=== PATIENT | male | born 1950 | race Hispanic/Latino ===

== ENCOUNTER → 2019-04-08 | Day surgery (SDC) | payer MEDICARE ==
[2019-04-06 13:06] LABS: BASOPHILS % 0.6 % (0.0-1.0); EOSINOPHILS # (AUTO) 0.1 (0.0-0.4); EOSINOPHILS % 1.9 % (0.0-6.0); HEMATOCRIT 41.6 % (38.2-49.6); HEMOGLOBIN 13.8 g/dL (14.0-18.0); LYMPHOCYTES # (AUTO) 2.5 (1.0-3.2); LYMPHOCYTES % 39.2 % (18.0-39.1); MEAN CORPUSCULAR HEMOGLOBIN 27.3 pg (28-32); MEAN CORPUSCULAR HGB CONC 33.2 g/dL (31-35); MEAN CORPUSCULAR VOLUME 82.4 fL (81-99); MONOCYTES # (AUTO) 0.8 (0.2-0.8); MONOCYTES % 11.9 % (4.4-11.3); NEUTROPHILS # (AUTO) 2.9 (2.1-6.9); NEUTROPHILS % 46.2 % (38.7-80.0); PLATELET COUNT 244 x10e3/uL (140-360); RED BLOOD COUNT 5.05 x10e6/uL (4.3-5.7)
[~2019-04-08] MED LIST: ATORVASTATIN CA10 MG PO; BENAZEPRIL HCL10 MG PO; ELIQUIS5 M1 PO; LASIX40 MG PO; LIDOCAINE HCL 2% LOCAL INJ 5 ML SDV VIAL INJ ONE; METFORMIN HCL500 MG PO; METOPROLOL SUCC50 MG PO; MIDAZOLAM HCL 2 MG/2 ML VIAL ONE; PROPOFOL IV EMULSION 10 MG/ML 50 ML VIAL ONE
--- OUTSIDE RECORDS SUMMARY | 2019-04-08 09:54 | XMS REPORT ---
Author Author [facility] Address Unknown Phone Unavailable Care Team Providers Care [employer] Canning Leader Name Role Phone ROHITKEY Unavailable Unavailable Nicolas HARRIS Unavailable Unavailable BRAN PHAM Unavailable Unavailable Problems This patient has no known problems. Allergies, Adverse Reactions, Alerts This patient has no known allergies or adverse reactions. Medications This patient has no known medications. Results Test Description Test Time Test Comments Text Results Atomic Results Result Comments BLOOD CULTURE 2018-09-13 20:01:00 CULTURE (BEAKER) (test pgsq=1442) No growth in 5 days BLOOD [id number] 20:01:00* Test Item Value Reference Range Comments CULTURE (BEAKER) (test bubj=3294) No growth in 5 days WOUND CULTURE + GRAM [id number] 12:34:00* Test Item Value Reference Range Comments CULTURE (BEAKER) (test ddix=4455) 3+ Diphtheroid CULTURE (BEAKER) (test rgmw=9405) ENTEROCOCCUS SPECIES <1+ Enterococcus species Ampicillin (test code=26) Tetracycline (test code=2) Vancomycin (test code=13) GRAM STAIN RESULT (BEAKER) (test lrmp=6901) 1+ WBCs GRAM STAIN RESULT (BEAKER) (test xcib=903152) 1+ gram positive rods GRAM STAIN RESULT (BEAKER) (test giiv=348780) <1+ gram positive coccobacilli POCT-GLUCOSE [id number] 11:53:00* Test Item Value Reference Range Comments POC-GLUCOSE METER (BEAKER) (test nlbd=3318) 106 mg/dL 70-[address] [facility] [address] [facility] [address] POCT-GLUCOSE [id number] 07:36:00* Test Item Value Reference Range Comments POC-GLUCOSE METER (BEAKER) (test obtv=6716) 125 mg/dL 70-[address] [facility] [address] [facility] [address] POCT-GLUCOSE [id number] 22:03:00* Test Item Value Reference Range Comments POC-GLUCOSE METER (BEAKER) (test zayc=8888) 126 mg/dL 70-110 TESTED AT [place] [id number] [facility] [address] POCT-GLUCOSE [id number] 17:01:00* Test Item Value Reference Range Comments POC-GLUCOSE METER (BEAKER) (test fyez=2611) 114 mg/dL 70-110 TESTED AT [address] [address] POCT-GLUCOSE [id number] 12:43:00* Test Item Value Reference Range Comments POC-GLUCOSE METER (BEAKER) (test sqkg=0118) 117 mg/dL 70-110 TESTED AT [address] [address] POCT-GLUCOSE [id number] 09:55:00* Test Item Value Reference Range Comments POC-GLUCOSE METER (BEAKER) (test dcod=1019) 126 mg/dL 70-110 TESTED AT [address] [address] [id number] 03:23:00* Test Item Value Reference Range Comments MAGNESIUM (BEAKER) (test ynxk=158) 2.3 mg/dL 1.6-2.6 Specimen slightly hemolyzed BASIC METABOLIC [id number] 03:23:00* Test Item Value Reference Range Comments SODIUM (BEAKER) (test xlal=998) 137 meq/L 136-145 POTASSIUM (BEAKER) (test vngb=815) 4.2 meq/L 3.5-5.1 Specimen slightly hemolyzed CHLORIDE (BEAKER) (test dazi=113) 103 meq/L 98-107 CO2 (BEAKER) (test epio=167) 23 meq/L 22-29 BLOOD UREA NITROGEN (BEAKER) (test toil=473) 15 mg/dL 7-21 CREATININE (BEAKER) (test wgnq=554) 1.01 mg/dL 0.57-1.25 Specimen slightly hemolyzed GLUCOSE RANDOM (BEAKER) (test djco=271) 114 mg/dL 70-105 CALCIUM (BEAKER) (test ehba=099) 9.4 mg/dL 8.4-10.2 EGFR (BEAKER) (test uset=7137) 73 mL/min/1.73 sq m ESTIMATED GFR IS NOT ACCURATE CREATININE CLEARANCE IN PREDICTING GLOMERULAR FILTRATION RATE. ESTIMATED GFR IS NOT APPLICABLE FOR DIALYSIS PATIENTS. POCT-GLUCOSE [id number] 21:50:00* Test Item Value Reference Range Comments POC-GLUCOSE METER (BEAKER) (test xzcx=2419) 171 mg/dL 70-110 TESTED AT [address] [address] POCT-GLUCOSE [id number] 19:06:00* Test Item Value Reference Range Comments POC-GLUCOSE METER (BEAKER) (test wgcd=0456) 109 mg/dL 70-110 TESTED AT [address] [address] POCT-GLUCOSE [id number] 13:11:00* Test Item Value Reference Range Comments POC-GLUCOSE METER (BEAKER) (test uvdu=7667) 122 mg/dL 70-110 TESTED AT [address] [address] POCT-GLUCOSE [id number] 09:08:00* Test Item Value Reference Range Comments POC-GLUCOSE METER (BEAKER) (test dgbs=9999) 126 mg/dL 70-110 TESTED AT [address] [address] [id number] 06:51:00* Test Item Value Reference Range Comments MAGNESIUM (BEAKER) (test igew=125) 2.0 mg/dL 1.6-2.6 BASIC METABOLIC [id number] 06:51:00* Test Item Value Reference Range Comments SODIUM (BEAKER) (test ayff=390) 140 meq/L 136-145 POTASSIUM (BEAKER) (test juyg=947) 4.2 meq/L 3.5-5.1 CHLORIDE (BEAKER) (test wrxu=622) 105 meq/L 98-107 CO2 (BEAKER) (test sjqm=558) 26 meq/L 22-29 BLOOD UREA NITROGEN (BEAKER) (test yfko=033) 14 mg/dL 7-21 CREATININE (BEAKER) (test xlkb=438) 1.07 mg/dL 0.57-1.25 GLUCOSE RANDOM (BEAKER) (test buzw=498) 128 mg/dL 70-105 CALCIUM (BEAKER) (test kmhy=612) 9.4 mg/dL 8.4-10.2 EGFR (BEAKER) (test iexp=8565) 69 mL/min/1.73 sq m ESTIMATED GFR IS NOT ACCURATE CREATININE CLEARANCE IN PREDICTING GLOMERULAR FILTRATION RATE. ESTIMATED GFR IS NOT APPLICABLE FOR DIALYSIS PATIENTS. POCT-GLUCOSE [id number] 22:35:00* Test Item Value Reference Range Comments POC-GLUCOSE METER (BEAKER) (test bile=1542) 114 mg/dL 70-110 TESTED AT [address] [address] POCT-GLUCOSE [id number] 17:48:00* Test Item Value Reference Range Comments POC-GLUCOSE METER (BEAKER) (test zapi=3414) 156 mg/dL 70-110 TESTED AT [address] [address] POCT-GLUCOSE [id number] 11:46:00* Test Item Value Reference Range Comments POC-GLUCOSE METER (BEAKER) (test olzl=8499) 167 mg/dL 70-110 TESTED AT [address] [address] POCT-GLUCOSE [id number] 09:22:00* Test Item Value Reference Range Comments POC-GLUCOSE METER (BEAKER) (test qrne=2300) 122 mg/dL 70-110 TESTED AT [address] [address] [id number] 07:54:00* Test Item Value Reference Range Comments MAGNESIUM (BEAKER) (test eeaf=741) 2.2 mg/dL 1.6-2.6 BASIC METABOLIC [id number] 07:54:00* Test Item Value Reference Range Comments SODIUM (BEAKER) (test cavi=500) 138 meq/L 136-145 POTASSIUM (BEAKER) (test jucf=904) 4.4 meq/L 3.5-5.1 CHLORIDE (BEAKER) (test byxe=787) 102 meq/L 98-107 CO2 (BEAKER) (test xwhw=617) 29 meq/L 22-29 BLOOD UREA NITROGEN (BEAKER) (test mglg=895) 12 mg/dL 7-21 CREATININE (BEAKER) (test wsmx=186) 0.97 mg/dL 0.57-1.25 GLUCOSE RANDOM (BEAKER) (test newf=754) 124 mg/dL 70-105 CALCIUM (BEAKER) (test hrts=314) 9.6 mg/dL 8.4-10.2 EGFR (BEAKER) (test bxdm=8378) 77 mL/min/1.73 sq m ESTIMATED GFR IS NOT ACCURATE CREATININE CLEARANCE IN PREDICTING GLOMERULAR FILTRATION RATE. ESTIMATED GFR IS NOT APPLICABLE FOR DIALYSIS PATIENTS. CBC (HEMOGRAM ONLY)2018-09-09 06:38:00* Test Item Value Reference Range Comments WHITE BLOOD CELL COUNT (BEAKER) (test hpyg=562) 6.8 K/ L 3.5-10.5 RED BLOOD CELL COUNT (BEAKER) (test inyi=393) 4.47 M/ L 4.63-6.08 HEMOGLOBIN (BEAKER) (test ghak=112) 11.5 GM/DL 13.7-17.5 HEMATOCRIT (BEAKER) (test njxi=969) 37.1 % 40.1-51.0 MEAN CORPUSCULAR VOLUME (BEAKER) (test lowe=373) 83.0 fL 79.0-92.2 MEAN CORPUSCULAR HEMOGLOBIN (BEAKER) (test zjea=554) 25.7 pg 25.7-32.2 MEAN CORPUSCULAR HEMOGLOBIN CONC (BEAKER) (test bhxl=137) 31.0 GM/DL 32.3-36.5 RED CELL DISTRIBUTION WIDTH (BEAKER) (test futu=673) 15.1 % 11.6-14.4 PLATELET COUNT (BEAKER) (test gcrq=772) 268 K/CU MM 150-450 MEAN PLATELET VOLUME (BEAKER) (test dqmp=878) 10.4 fL 9.4-12.4 NUCLEATED RED BLOOD CELLS (BEAKER) (test msdl=532) 0 /100 WBC 0-0 POCT-GLUCOSE [id number] 23:41:00* Test Item Value Reference Range Comments POC-GLUCOSE METER (BEAKER) (test phpy=2384) 118 mg/dL 70-[address] [facility] [address] [facility] [address] POCT-GLUCOSE [id number] 17:38:00* Test Item Value Reference Range Comments POC-GLUCOSE METER (BEAKER) (test lfyn=0451) 146 mg/dL 70-[address] [facility] [address] [facility] [address] POCT-LACTIC ACID, [id number] 12:12:00* Test Item Value Reference Range Comments POC-LACTIC ACID, VENOUS (BEAKER) (test rgbr=2127) 1.8 mmol/L 0.9-1.[address] [facility] [address] [facility] [address] BASIC METABOLIC [id number] 12:05:00* Test Item Value Reference Range Comments SODIUM (BEAKER) (test yaxq=569) 142 meq/L 136-145 POTASSIUM (BEAKER) (test cmhj=650) 4.4 meq/L 3.5-5.1 CHLORIDE (BEAKER) (test tysm=182) 105 meq/L 98-107 CO2 (BEAKER) (test arfa=063) 27 meq/L 22-29 BLOOD UREA NITROGEN (BEAKER) (test gyfv=080) 14 mg/dL 7-21 CREATININE (BEAKER) (test ahmy=617) 0.95 mg/dL 0.57-1.25 GLUCOSE RANDOM (BEAKER) (test calf=076) 125 mg/dL 70-105 CALCIUM (BEAKER) (test sytc=155) 10.1 mg/dL 8.4-10.2 EGFR (BEAKER) (test jrvj=9586) 79 mL/min/1.73 sq m ESTIMATED GFR IS NOT ACCURATE CREATININE CLEARANCE IN PREDICTING GLOMERULAR FILTRATION RATE. ESTIMATED GFR IS NOT APPLICABLE FOR DIALYSIS PATIENTS. CBC W/PLT COUNT & AUTO [id number] 11:47:00* Test Item Value Reference Range Comments WHITE BLOOD CELL COUNT (BEAKER) (test uimh=989) 7.1 K/ L 3.5-10.5 RED BLOOD CELL COUNT (BEAKER) (test cnmk=337) 4.73 M/ L 4.63-6.08 HEMOGLOBIN (BEAKER) (test yhbd=041) 12.1 GM/DL 13.7-17.5 HEMATOCRIT (BEAKER) (test ndzz=282) 39.3 % 40.1-51.0 MEAN CORPUSCULAR VOLUME (BEAKER) (test xrlu=717) 83.1 fL 79.0-92.2 MEAN CORPUSCULAR HEMOGLOBIN (BEAKER) (test jnsr=078) 25.6 pg 25.7-32.2 MEAN CORPUSCULAR HEMOGLOBIN CONC (BEAKER) (test kcwt=521) 30.8 GM/DL 32.3-36.5 RED CELL DISTRIBUTION WIDTH (BEAKER) (test fjhr=758) 15.1 % 11.6-14.4 PLATELET COUNT (BEAKER) (test cwrk=975) 295 K/CU MM 150-450 MEAN PLATELET VOLUME (BEAKER) (test hjlg=052) 9.8 fL 9.4-12.4 NUCLEATED RED BLOOD CELLS (BEAKER) (test khjf=006) 0 /100 WBC 0-0 NEUTROPHILS RELATIVE PERCENT (BEAKER) (test ojqc=681) 54 % LYMPHOCYTES RELATIVE PERCENT (BEAKER) (test yjci=701) 32 % MONOCYTES RELATIVE PERCENT (BEAKER) (test acri=788) 11 % EOSINOPHILS RELATIVE PERCENT (BEAKER) (test rvwp=856) 3 % BASOPHILS RELATIVE PERCENT (BEAKER) (test jgop=995) 1 % NEUTROPHILS ABSOLUTE COUNT (BEAKER) (test lvly=546) 3.81 K/ L 1.78-5.38 LYMPHOCYTES ABSOLUTE COUNT (BEAKER) (test avhw=345) 2.23 K/ L 1.32-3.57 MONOCYTES ABSOLUTE COUNT (BEAKER) (test hfah=888) 0.78 K/ L 0.30-0.82 EOSINOPHILS ABSOLUTE COUNT (BEAKER) (test wpmg=746) 0.19 K/ L 0.04-0.54 BASOPHILS ABSOLUTE COUNT (BEAKER) (test dtfc=578) 0.05 K/ L 0.01-0.08 IMMATURE GRANULOCYTES-RELATIVE PERCENT (BEAKER) (test qkgl=1187) 0 % 0-1 BLOOD [id number] 13:00:00* Test Item Value Reference Range Comments CULTURE (BEAKER) (test eoiy=0566) No growth in 5 days BLOOD [id number] 13:00:00* Test Item Value Reference Range Comments CULTURE (BEAKER) (test avjf=0754) No growth in 5 days POCT-GLUCOSE [id number] 12:11:00* Test Item Value Reference Range Comments POC-GLUCOSE METER (BEAKER) (test wwwl=6006) 137 mg/dL 70-[address] [facility] [address] [facility] [address] POCT-GLUCOSE [id number] 08:48:00* Test Item Value Reference Range Comments POC-GLUCOSE METER (BEAKER) (test pftd=4893) 133 mg/dL 70-[address] [facility] [address] [facility] [address] CALCIUM, [id number] 06:26:00* Test Item Value Reference Range Comments CALCIUM IONIZED (BEAKER) (test qgpo=873) 1.12 mmol/L 1.12-1.27 PH, BLOOD (BEAKER) (test kikw=5231) 7.35 [id number] 06:18:00* Test Item Value Reference Range Comments PHOSPHORUS (BEAKER) (test twxn=724) 3.2 mg/dL 2.3-4.7 [id number] 06:18:00* Test Item Value Reference Range Comments MAGNESIUM (BEAKER) (test gkso=454) 1.8 mg/dL 1.6-2.6 BASIC METABOLIC [id number] 06:18:00* Test Item Value Reference Range Comments SODIUM (BEAKER) (test kvgx=658) 136 meq/L 136-145 POTASSIUM (BEAKER) (test gwff=467) 4.0 meq/L 3.5-5.1 CHLORIDE (BEAKER) (test bhmh=561) 105 meq/L 98-107 CO2 (BEAKER) (test pond=438) 24 meq/L 22-29 BLOOD UREA NITROGEN (BEAKER) (test ohea=435) 10 mg/dL 7-21 CREATININE (BEAKER) (test zemy=972) 0.83 mg/dL 0.57-1.25 GLUCOSE RANDOM (BEAKER) (test iabr=519) 112 mg/dL 70-105 CALCIUM (BEAKER) (test delb=936) 8.6 mg/dL 8.4-10.2 EGFR (BEAKER) (test ehqc=2065) 92 mL/min/1.73 sq m ESTIMATED GFR IS NOT ACCURATE CREATININE CLEARANCE IN PREDICTING GLOMERULAR FILTRATION RATE. ESTIMATED GFR IS NOT APPLICABLE FOR DIALYSIS PATIENTS. CBC W/PLT COUNT & AUTO [id number] 05:11:00* Test Item Value Reference Range Comments WHITE BLOOD CELL COUNT (BEAKER) (test bmum=035) 7.9 K/ L 3.5-10.5 RED BLOOD CELL COUNT (BEAKER) (test lfam=072) 3.86 M/ L 4.63-6.08 HEMOGLOBIN (BEAKER) (test isoc=852) 9.9 GM/DL 13.7-17.5 HEMATOCRIT (BEAKER) (test dpeg=040) 31.9 % 40.1-51.0 MEAN CORPUSCULAR VOLUME (BEAKER) (test xdpn=186) 82.6 fL 79.0-92.2 MEAN CORPUSCULAR HEMOGLOBIN (BEAKER) (test iqqh=233) 25.6 pg 25.7-32.2 MEAN CORPUSCULAR HEMOGLOBIN CONC (BEAKER) (test eaii=077) 31.0 GM/DL 32.3-36.5 RED CELL DISTRIBUTION WIDTH (BEAKER) (test wcmn=884) 14.0 % 11.6-14.4 PLATELET COUNT (BEAKER) (test mtvn=298) 408 K/CU MM 150-450 MEAN PLATELET VOLUME (BEAKER) (test nvas=282) 10.2 fL 9.4-12.4 NUCLEATED RED BLOOD CELLS (BEAKER) (test jyib=531) 0 /100 WBC 0-0 NEUTROPHILS RELATIVE PERCENT (BEAKER) (test bjoy=404) 61 % LYMPHOCYTES RELATIVE PERCENT (BEAKER) (test raaz=058) 25 % MONOCYTES RELATIVE PERCENT (BEAKER) (test cpbz=828) 11 % EOSINOPHILS RELATIVE PERCENT (BEAKER) (test gwgt=566) 2 % BASOPHILS RELATIVE PERCENT (BEAKER) (test ximz=881) 1 % NEUTROPHILS ABSOLUTE COUNT (BEAKER) (test glaz=751) 4.78 K/ L 1.78-5.38 LYMPHOCYTES ABSOLUTE COUNT (BEAKER) (test kkuu=433) 1.99 K/ L 1.32-3.57 MONOCYTES ABSOLUTE COUNT (BEAKER) (test culy=793) 0.87 K/ L 0.30-0.82 EOSINOPHILS ABSOLUTE COUNT (BEAKER) (test larg=273) 0.18 K/ L 0.04-0.54 BASOPHILS ABSOLUTE COUNT (BEAKER) (test drii=053) 0.05 K/ L 0.01-0.08 IMMATURE GRANULOCYTES-RELATIVE PERCENT (BEAKER) (test eedy=8040) 0 % 0-1 POCT-GLUCOSE [id number] 22:27:00* Test Item Value Reference Range Comments POC-GLUCOSE METER (BEAKER) (test eslu=3462) 141 mg/dL 70-[address] [facility] [address] [facility] [address] POCT-GLUCOSE [id number] 18:35:00* Test Item Value Reference Range Comments POC-GLUCOSE METER (BEAKER) (test qyrf=8140) 109 mg/dL 70-[address] [facility] [address] [facility] [address] POCT-GLUCOSE [id number] 13:07:00* Test Item Value Reference Range Comments POC-GLUCOSE METER (BEAKER) (test feab=9559) 110 mg/dL 70-110 TESTED AT [place] [id number] [facility] [address] POCT-GLUCOSE [id number] 08:54:00* Test Item Value Reference Range Comments POC-GLUCOSE METER (BEAKER) (test ltva=8500) 155 mg/dL 70-110 TESTED AT [place] [id number] [facility] [address] CALCIUM, [id number] 06:54:00* Test Item Value Reference Range Comments CALCIUM IONIZED (BEAKER) (test yqub=297) 1.09 mmol/L 1.12-1.27 PH, BLOOD (BEAKER) (test qqeg=5168) 7.41 [id number] 05:13:00* Test Item Value Reference Range Comments PHOSPHORUS (BEAKER) (test wyup=175) 3.2 mg/dL 2.3-4.7 [id number] 05:13:00* Test Item Value Reference Range Comments MAGNESIUM (BEAKER) (test imkf=954) 1.9 mg/dL 1.6-2.6 BASIC METABOLIC [id number] 05:13:00* Test Item Value Reference Range Comments SODIUM (BEAKER) (test zhkg=378) 137 meq/L 136-145 POTASSIUM (BEAKER) (test zvoy=772) 3.9 meq/L 3.5-5.1 CHLORIDE (BEAKER) (test gake=644) 105 meq/L 98-107 CO2 (BEAKER) (test ddzj=462) 23 meq/L 22-29 BLOOD UREA NITROGEN (BEAKER) (test pvih=325) 9 mg/dL 7-21 CREATININE (BEAKER) (test stdw=941) 0.87 mg/dL 0.57-1.25 GLUCOSE RANDOM (BEAKER) (test rsug=800) 135 mg/dL 70-105 CALCIUM (BEAKER) (test hzuv=550) 9.0 mg/dL 8.4-10.2 EGFR (BEAKER) (test gqsj=4620) 87 mL/min/1.73 sq m ESTIMATED GFR IS NOT ACCURATE CREATININE CLEARANCE IN PREDICTING GLOMERULAR FILTRATION RATE. ESTIMATED GFR IS NOT APPLICABLE FOR DIALYSIS PATIENTS. CBC W/PLT COUNT & AUTO [id number] 04:32:00* Test Item Value Reference Range Comments WHITE BLOOD CELL COUNT (BEAKER) (test fcsp=328) 8.8 K/ L 3.5-10.5 RED BLOOD CELL COUNT (BEAKER) (test qgtf=834) 3.95 M/ L 4.63-6.08 HEMOGLOBIN (BEAKER) (test xwqw=889) 10.1 GM/DL 13.7-17.5 HEMATOCRIT (BEAKER) (test lffp=093) 32.3 % 40.1-51.0 MEAN CORPUSCULAR VOLUME (BEAKER) (test poch=970) 81.8 fL 79.0-92.2 MEAN CORPUSCULAR HEMOGLOBIN (BEAKER) (test yhnl=694) 25.6 pg 25.7-32.2 MEAN CORPUSCULAR HEMOGLOBIN CONC (BEAKER) (test kzpn=992) 31.3 GM/DL 32.3-36.5 RED CELL DISTRIBUTION WIDTH (BEAKER) (test qjjn=788) 13.7 % 11.6-14.4 PLATELET COUNT (BEAKER) (test ibmt=610) 415 K/CU MM 150-450 MEAN PLATELET VOLUME (BEAKER) (test xqow=768) 10.1 fL 9.4-12.4 NUCLEATED RED BLOOD CELLS (BEAKER) (test efhm=522) 0 /100 WBC 0-0 NEUTROPHILS RELATIVE PERCENT (BEAKER) (test scqm=144) 66 % LYMPHOCYTES RELATIVE PERCENT (BEAKER) (test ugkh=446) 22 % MONOCYTES RELATIVE PERCENT (BEAKER) (test hdxd=331) 9 % EOSINOPHILS RELATIVE PERCENT (BEAKER) (test pwkh=355) 2 % BASOPHILS RELATIVE PERCENT (BEAKER) (test vfdz=988) 1 % NEUTROPHILS ABSOLUTE COUNT (BEAKER) (test efhn=203) 5.85 K/ L 1.78-5.38 LYMPHOCYTES ABSOLUTE COUNT (BEAKER) (test pbec=812) 1.96 K/ L 1.32-3.57 MONOCYTES ABSOLUTE COUNT (BEAKER) (test mtty=808) 0.82 K/ L 0.30-0.82 EOSINOPHILS ABSOLUTE COUNT (BEAKER) (test kwqp=500) 0.13 K/ L 0.04-0.54 BASOPHILS ABSOLUTE COUNT (BEAKER) (test koaz=356) 0.05 K/ L 0.01-0.08 IMMATURE GRANULOCYTES-RELATIVE PERCENT (BEAKER) (test vhcv=1790) 0 % 0-1 POCT-GLUCOSE [id number] 21:57:00* Test Item Value Reference Range Comments POC-GLUCOSE METER (BEAKER) (test fxjb=7878) 222 mg/dL 70-110 TESTED AT [address] [address] POCT-GLUCOSE [id number] 18:15:00* Test Item Value Reference Range Comments POC-GLUCOSE METER (BEAKER) (test lusl=9722) 160 mg/dL 70-110 TESTED AT [address] [address] POCT-GLUCOSE [id number] 13:25:00* Test Item Value Reference Range Comments POC-GLUCOSE METER (BEAKER) (test xzwy=0947) 132 mg/dL 70-110 TESTED AT [address] [address] VANCOMYCIN LEVEL, [id number] 12:31:00* Test Item Value Reference Range Comments VANCOMYCIN TROUGH (BEAKER) (test kfdx=725) 11.9 ug/mL 10.0-20.0 POCT-GLUCOSE [id number] 08:58:00* Test Item Value Reference Range Comments POC-GLUCOSE METER (BEAKER) (test vqed=7360) 136 mg/dL 70-110 TESTED AT [address] [address] [id number] 06:48:00* Test Item Value Reference Range Comments PHOSPHORUS (BEAKER) (test ferm=245) 3.4 mg/dL 2.3-4.7 [id number] 06:48:00* Test Item Value Reference Range Comments MAGNESIUM (BEAKER) (test hfaq=366) 1.9 mg/dL 1.6-2.6 BASIC METABOLIC [id number] 06:48:00* Test Item Value Reference Range Comments SODIUM (BEAKER) (test ruyo=840) 138 meq/L 136-145 POTASSIUM (BEAKER) (test xeja=381) 4.0 meq/L 3.5-5.1 CHLORIDE (BEAKER) (test dmfi=903) 106 meq/L 98-107 CO2 (BEAKER) (test pfki=579) 25 meq/L 22-29 BLOOD UREA NITROGEN (BEAKER) (test tcro=926) 9 mg/dL 7-21 CREATININE (BEAKER) (test dlex=069) 0.84 mg/dL 0.57-1.25 GLUCOSE RANDOM (BEAKER) (test hbxi=195) 130 mg/dL 70-105 CALCIUM (BEAKER) (test fozj=650) 9.0 mg/dL 8.4-10.2 EGFR (BEAKER) (test bnuc=3439) 91 mL/min/1.73 sq m ESTIMATED GFR IS NOT ACCURATE CREATININE CLEARANCE IN PREDICTING GLOMERULAR FILTRATION RATE. ESTIMATED GFR IS NOT APPLICABLE FOR DIALYSIS PATIENTS. CALCIUM, [id number] 06:37:00* Test Item Value Reference Range Comments CALCIUM IONIZED (BEAKER) (test mgdu=071) 1.09 mmol/L 1.12-1.27 PH, BLOOD (BEAKER) (test qbse=1230) 7.44 CBC W/PLT COUNT & AUTO [id number] 06:11:00* Test Item Value Reference Range Comments WHITE BLOOD CELL COUNT (BEAKER) (test ncll=781) 9.1 K/ L 3.5-10.5 RED BLOOD CELL COUNT (BEAKER) (test fbnk=289) 3.99 M/ L 4.63-6.08 HEMOGLOBIN (BEAKER) (test xnzw=976) 10.1 GM/DL 13.7-17.5 HEMATOCRIT (BEAKER) (test iarr=130) 33.3 % 40.1-51.0 MEAN CORPUSCULAR VOLUME (BEAKER) (test nccc=069) 83.5 fL 79.0-92.2 MEAN CORPUSCULAR HEMOGLOBIN (BEAKER) (test nknv=762) 25.3 pg 25.7-32.2 MEAN CORPUSCULAR HEMOGLOBIN CONC (BEAKER) (test cxlo=534) 30.3 GM/DL 32.3-36.5 RED CELL DISTRIBUTION WIDTH (BEAKER) (test crmj=763) 14.1 % 11.6-14.4 PLATELET COUNT (BEAKER) (test jdil=326) 424 K/CU MM 150-450 MEAN PLATELET VOLUME (BEAKER) (test ltop=252) 9.8 fL 9.4-12.4 NUCLEATED RED BLOOD CELLS (BEAKER) (test aakg=268) 0 /100 WBC 0-0 NEUTROPHILS RELATIVE PERCENT (BEAKER) (test jwcb=833) 68 % LYMPHOCYTES RELATIVE PERCENT (BEAKER) (test pxrn=043) 21 % MONOCYTES RELATIVE PERCENT (BEAKER) (test dulz=040) 10 % EOSINOPHILS RELATIVE PERCENT (BEAKER) (test gxow=613) 1 % BASOPHILS RELATIVE PERCENT (BEAKER) (test sjzk=686) 0 % NEUTROPHILS ABSOLUTE COUNT (BEAKER) (test ixxm=148) 6.14 K/ L 1.78-5.38 LYMPHOCYTES ABSOLUTE COUNT (BEAKER) (test yjzs=492) 1.87 K/ L 1.32-3.57 MONOCYTES ABSOLUTE COUNT (BEAKER) (test huhk=588) 0.87 K/ L 0.30-0.82 EOSINOPHILS ABSOLUTE COUNT (BEAKER) (test bmka=223) 0.10 K/ L 0.04-0.54 BASOPHILS ABSOLUTE COUNT (BEAKER) (test bkvs=546) 0.04 K/ L 0.01-0.08 IMMATURE GRANULOCYTES-RELATIVE PERCENT (BEAKER) (test hqly=8026) 0 % 0-1 POCT-GLUCOSE [id number] 21:30:00* Test Item Value Reference Range Comments POC-GLUCOSE METER (BEAKER) (test ztlh=5473) 163 mg/dL 70-110 TESTED AT [place] [id number] POCT-GLUCOSE [id number] 18:53:00* Test Item Value Reference Range Comments POC-GLUCOSE METER (BEAKER) (test gueo=2499) 100 mg/dL 70-110 TESTED AT [address] [address] POCT-GLUCOSE [id number] 12:03:00* Test Item Value Reference Range Comments POC-GLUCOSE METER (BEAKER) (test asvo=1334) 158 mg/dL 70-110 TESTED AT [address] [address] POCT-GLUCOSE [id number] 08:50:00* Test Item Value Reference Range Comments POC-GLUCOSE METER (BEAKER) (test ayfy=8722) 146 mg/dL 70-110 TESTED AT [address] [address] COMPREHENSIVE METABOLIC [id number] 01:32:00* Test Item Value Reference Range Comments TOTAL PROTEIN (BEAKER) (test nnqz=505) 7.6 gm/dL 6.0-8.3 ALBUMIN (BEAKER) (test krtm=8784) 3.4 g/dL 3.5-5.0 ALKALINE PHOSPHATASE (BEAKER) (test ckbo=900) 60 U/L 40-150 BILIRUBIN TOTAL (BEAKER) (test obcw=928) 0.4 mg/dL 0.2-1.2 SODIUM (BEAKER) (test huna=212) 138 meq/L 136-145 POTASSIUM (BEAKER) (test vfel=417) 3.7 meq/L 3.5-5.1 CHLORIDE (BEAKER) (test mwnx=935) 103 meq/L 98-107 CO2 (BEAKER) (test laol=167) 26 meq/L 22-29 BLOOD UREA NITROGEN (BEAKER) (test uity=933) 12 mg/dL 7-21 CREATININE (BEAKER) (test qnaa=001) 0.99 mg/dL 0.57-1.25 GLUCOSE RANDOM (BEAKER) (test joen=405) 127 mg/dL 70-105 CALCIUM (BEAKER) (test dvrl=498) 9.3 mg/dL 8.4-10.2 AST (SGOT) (BEAKER) (test aieu=331) 26 U/L 5-34 ALT (SGPT) (BEAKER) (test kkbg=936) 31 U/L 6-55 EGFR (BEAKER) (test yjhh=0353) 75 mL/min/1.73 sq m ESTIMATED GFR IS NOT ACCURATE CREATININE CLEARANCE IN PREDICTING GLOMERULAR FILTRATION RATE. ESTIMATED GFR IS NOT APPLICABLE FOR DIALYSIS PATIENTS. VANCOMYCIN LEVEL, [id number] 01:28:00* Test Item Value Reference Range Comments VANCOMYCIN TROUGH (BEAKER) (test mpxr=484) 6.9 ug/mL 10.0-20.0 CBC W/PLT COUNT & AUTO [id number] 01:15:00* Test Item Value Reference Range Comments WHITE BLOOD CELL COUNT (BEAKER) (test cbxu=046) 9.2 K/ L 3.5-10.5 RED BLOOD CELL COUNT (BEAKER) (test rlwv=297) 3.96 M/ L 4.63-6.08 HEMOGLOBIN (BEAKER) (test znub=940) 10.3 GM/DL 13.7-17.5 HEMATOCRIT (BEAKER) (test wuww=243) 32.7 % 40.1-51.0 MEAN CORPUSCULAR VOLUME (BEAKER) (test bfet=243) 82.6 fL 79.0-92.2 MEAN CORPUSCULAR HEMOGLOBIN (BEAKER) (test iavq=020) 26.0 pg 25.7-32.2 MEAN CORPUSCULAR HEMOGLOBIN CONC (BEAKER) (test jucp=906) 31.5 GM/DL 32.3-36.5 RED CELL DISTRIBUTION WIDTH (BEAKER) (test qwdp=890) 14.1 % 11.6-14.4 PLATELET COUNT (BEAKER) (test sarn=424) 420 K/CU MM 150-450 MEAN PLATELET VOLUME (BEAKER) (test brcz=925) 9.8 fL 9.4-12.4 NUCLEATED RED BLOOD CELLS (BEAKER) (test wfpz=768) 0 /100 WBC 0-0 NEUTROPHILS RELATIVE PERCENT (BEAKER) (test vyym=155) 66 % LYMPHOCYTES RELATIVE PERCENT (BEAKER) (test inat=262) 23 % MONOCYTES RELATIVE PERCENT (BEAKER) (test tyvc=649) 9 % EOSINOPHILS RELATIVE PERCENT (BEAKER) (test hqxt=796) 1 % BASOPHILS RELATIVE PERCENT (BEAKER) (test fkjm=605) 0 % NEUTROPHILS ABSOLUTE COUNT (BEAKER) (test vqdk=471) 6.09 K/ L 1.78-5.38 LYMPHOCYTES ABSOLUTE COUNT (BEAKER) (test nzzj=608) 2.10 K/ L 1.32-3.57 MONOCYTES ABSOLUTE COUNT (BEAKER) (test erts=068) 0.79 K/ L 0.30-0.82 EOSINOPHILS ABSOLUTE COUNT (BEAKER) (test yrhh=456) 0.06 K/ L 0.04-0.54 BASOPHILS ABSOLUTE COUNT (BEAKER) (test hgoc=283) 0.03 K/ L 0.01-0.08 IMMATURE GRANULOCYTES-RELATIVE PERCENT (BEAKER) (test kcii=8878) 1 % 0-1 POCT-GLUCOSE [id number] 21:46:00* Test Item Value Reference Range Comments POC-GLUCOSE METER (BEAKER) (test arab=3913) 187 mg/dL 70-110 TESTED AT [facility] [address] [facility] [address] POCT-GLUCOSE [id number] 17:48:00* Test Item Value Reference Range Comments POC-GLUCOSE METER (AKER) (test xtdw=2220) 123 mg/dL 70-[address] [facility] [address] [facility] [address] POCT-LACTIC ACID, [id number] 14:40:00* Test Item Value Reference Range Comments POC-LACTIC ACID, VENOUS (BEAKER) (test kbbg=9772) 1.5 mmol/L 0.9-1.7 TESTED AT [address] [address] [id number] 10:57:00* Test Item Value Reference Range Comments PROCALCITONIN (BEAKER) (test ader=8689) < ng/mL <0.05 SEPSIS RISK (ng/mL)Low: 0.05-0.50Intermediate: 0.51-2.00High: > =2.01TROPONIN [id number] 10:38:00* Test Item Value Reference Range Comments TROPONIN I (BEAKER) (test dvfl=559) 0.04 ng/mL 0.00-0.03 Troponin I (TnI) levels must be interpreted in the context of the presenting sym ptoms and the clinical findings. Elevated TnI levels indicate myocardial damage, but are not specific for ischemic heart disease. Elevated TnI levels are seen in patients with other cardiac conditions (including myocarditis and congestive h eart failure), and slight TnI elevations occur in patients with other conditions , including sepsis, renal failure, acidosis, acute neurological disease, and per sistent tachyarrhythmia.B-TYPE NATRIURETIC FACTOR (BNP)2018-08-17 10:33:00* Test Item Value Reference Range Comments B-TYPE NATRIURETIC PEPTIDE (BEAKER) (test dzuz=764) 143 pg/mL 0-100 CBC W/PLT COUNT & AUTO [id number] 10:30:00* Test Item Value Reference Range Comments WHITE BLOOD CELL COUNT (BEAKER) (test gnvl=778) 13.1 K/ L 3.5-10.5 RED BLOOD CELL COUNT (BEAKER) (test ogfo=890) 4.23 M/ L 4.63-6.08 HEMOGLOBIN (BEAKER) (test btwa=991) 10.8 GM/DL 13.7-17.5 HEMATOCRIT (BEAKER) (test yuiz=492) 34.8 % 40.1-51.0 MEAN CORPUSCULAR VOLUME (BEAKER) (test cppv=871) 82.3 fL 79.0-92.2 MEAN CORPUSCULAR HEMOGLOBIN (BEAKER) (test qrxp=709) 25.5 pg 25.7-32.2 MEAN CORPUSCULAR HEMOGLOBIN CONC (BEAKER) (test fmzp=477) 31.0 GM/DL 32.3-36.5 RED CELL DISTRIBUTION WIDTH (BEAKER) (test yukj=930) 14.3 % 11.6-14.4 PLATELET COUNT (BEAKER) (test svnw=462) 471 K/CU MM 150-450 MEAN PLATELET VOLUME (BEAKER) (test bfyo=134) 10.1 fL 9.4-12.4 NUCLEATED RED BLOOD CELLS (BEAKER) (test lzrw=098) 0 /100 WBC 0-0 NEUTROPHILS RELATIVE PERCENT (BEAKER) (test zdsr=198) 72 % LYMPHOCYTES RELATIVE PERCENT (BEAKER) (test lmft=994) 17 % MONOCYTES RELATIVE PERCENT (BEAKER) (test pzoi=007) 9 % EOSINOPHILS RELATIVE PERCENT (BEAKER) (test likd=823) 1 % BASOPHILS RELATIVE PERCENT (BEAKER) (test jcxf=073) 0 % NEUTROPHILS ABSOLUTE COUNT (BEAKER) (test xcqa=559) 9.50 K/ L 1.78-5.38 LYMPHOCYTES ABSOLUTE COUNT (BEAKER) (test jyhf=878) 2.26 K/ L 1.32-3.57 MONOCYTES ABSOLUTE COUNT (BEAKER) (test kkod=672) 1.21 K/ L 0.30-0.82 EOSINOPHILS ABSOLUTE COUNT (BEAKER) (test fhxr=068) 0.07 K/ L 0.04-0.54 BASOPHILS ABSOLUTE COUNT (BEAKER) (test smzq=852) 0.04 K/ L 0.01-0.08 IMMATURE GRANULOCYTES-RELATIVE PERCENT (BEAKER) (test jtqx=4514) 1 % 0-1 [id number] 10:29:00* Test Item Value Reference Range Comments PHOSPHORUS (BEAKER) (test kcwo=114) 3.2 mg/dL 2.3-4.7 [id number] 10:29:00* Test Item Value Reference Range Comments MAGNESIUM (BEAKER) (test mdky=176) 2.3 mg/dL 1.6-2.6 BASIC METABOLIC [id number] 10:29:00* Test Item Value Reference Range Comments SODIUM (BEAKER) (test btta=533) 137 meq/L 136-145 POTASSIUM (BEAKER) (test zaxo=823) 4.3 meq/L 3.5-5.1 CHLORIDE (BEAKER) (test gluh=476) 102 meq/L 98-107 CO2 (BEAKER) (test tlhv=695) 25 meq/L 22-29 BLOOD UREA NITROGEN (BEAKER) (test oojp=711) 15 mg/dL 7-21 CREATININE (BEAKER) (test ovzb=867) 0.98 mg/dL 0.57-1.25 GLUCOSE RANDOM (BEAKER) (test yqyb=095) 137 mg/dL 70-105 CALCIUM (BEAKER) (test ybai=063) 9.6 mg/dL 8.4-10.2 EGFR (BEAKER) (test mrno=8323) 76 mL/min/1.73 sq m ESTIMATED GFR IS NOT ACCURATE CREATININE CLEARANCE IN PREDICTING GLOMERULAR FILTRATION RATE. ESTIMATED GFR IS NOT APPLICABLE FOR DIALYSIS PATIENTS. HEPATIC FUNCTION [id number] 10:29:00* Test Item Value Reference Range Comments TOTAL PROTEIN (BEAKER) (test yfaz=326) 8.3 gm/dL 6.0-8.3 ALBUMIN (BEAKER) (test gfic=3344) 3.7 g/dL 3.5-5.0 BILIRUBIN TOTAL (BEAKER) (test gnqt=659) 0.4 mg/dL 0.2-1.2 BILIRUBIN DIRECT (BEAKER) (test tktn=871) 0.2 mg/dL 0.1-0.5 ALKALINE PHOSPHATASE (BEAKER) (test gdex=224) 69 U/L 40-150 AST (SGOT) (BEAKER) (test hurp=189) 28 U/L 5-34 ALT (SGPT) (BEAKER) (test ggcr=895) 30 U/L 6-55 [id number] 10:29:00* Test Item Value Reference Range Comments LIPASE (BEAKER) (test bbkk=807) 72 U/L 8-78 [id number] 10:16:00* Test Item Value Reference Range Comments PARTIAL THROMBOPLASTIN TIME (BEAKER) (test spcw=485) 31.8 seconds 22.5-36.0 PROTHROMBIN [id number] 10:15:00* Test Item Value Reference Range Comments PROTIME (BEAKER) (test lfcv=842) 14.6 seconds 11.7-14.7 INR (BEAKER) (test jrji=281) 1.1 <=5.9 RECOMMENDED COUMADIN/WARFARIN INR THERAPY RANGESSTANDARD DOSE: 2.0 - 3.0 Inclu nilesh: PROPHYLAXIS for venous thrombosis, systemic embolization; TREATMENT for bailey ous thrombosis and/or pulmonary embolus.HIGH RISK: Target INR is 2.5-3.5 for pat ients with mechanical heart valves.POCT-LACTIC ACID, [id number] 10:03:00* Test Item Value Reference Range Comments POC-LACTIC ACID, VENOUS (BEAKER) (test tlvb=9640) 2.5 mmol/L 0.9-1.[address] [facility] [address] [facility] [address] OXYGEN SATURATION, [id number] 10:03:00* Test Item Value Reference Range Comments O2 SATURATION (MEASURED) (BEAKER) (test nckz=5361) 65.4 % If patient has internal jugular ( IJ) or subclavian central line or PICC line. D raw from distal port. Label as central venous oxygen.RAD, CHEST, 1 VIEW, NON [id number] 09:51:00Reason for exam:->FEVERShould this be performed at the bedside?->YesFINAL REPORT TECHNIQUE: Frontal view of the chest. INDICATION: 67-year-old man with fever. COMPARISON: Chest radiograph 08/13/2018. FINDINGS: LINES/TUBES: Unchanged. LUNGS: Mild linear airspace opacity in both lower lung zones, likely atelectasis. PLEURA: No pneumothorax or significant pleural effusion. HEART AND MEDIASTINUM: The cardiomediastinal silhouette is unchanged. Unchanged prosthetic cardiac valve. Tortuous thoracic aorta. SOFT TISSUES AND BONES: Unremarkable. IMPRESSION:Mild atelectasis in both lung bases. Otherwise, no acute cardiopulmonary abnormalities. Signed: Gerson Hernandez MDReport Verified Date/Time: 08/17/2018 09:51:04 Reading Location: [facility] Radiology Reading Room -GLUCOSE [id number] 12:43:00* Test Item Value Reference Range Comments POC-GLUCOSE METER (BEAKER) (test gknx=7496) 130 mg/dL 70-[address] [facility] [address] [facility] [address] POCT-GLUCOSE [id number] 12:25:00* Test Item Value Reference Range Comments POC-GLUCOSE METER (BEAKER) (test umua=0500) 167 mg/dL 70-[address] [facility] [address] [facility] [address] RAD, CHEST, 1 VIEW, NON [id number] 08:46:00Reason for exam:->pleural effusion Should this be performed at the bedside?->YesFINAL REPORT Chest one view. Clinical history: pleural effusion Comparison: 08/12/2018 Discussion: A frontal chest is provided. Cardiomediastinal contours are unchanged. Mild bibasilar atelectasis versus consolidation. No new consolidation. No roberto pulmonary edema. No pneumothorax or large effusion. Signed: Deanna Grier Verified Date/Time: 08/13/2018 08:46:05 Reading Location: [facility] Radiology Reading Room [id number] 06:21:00* Test Item Value Reference Range Comments MAGNESIUM (BEAKER) (test wdgc=892) 2.2 mg/dL 1.6-2.6 Specimen slightly hemolyzed BASIC METABOLIC [id number] 06:21:00* Test Item Value Reference Range Comments SODIUM (BEAKER) (test jivq=291) 138 meq/L 136-145 POTASSIUM (BEAKER) (test lfwj=450) 4.1 meq/L 3.5-5.1 Specimen slightly hemolyzed CHLORIDE (BEAKER) (test sqge=268) 102 meq/L 98-107 CO2 (BEAKER) (test mayt=945) 26 meq/L 22-29 BLOOD UREA NITROGEN (BEAKER) (test cbbb=364) 24 mg/dL 7-21 CREATININE (BEAKER) (test efos=020) 0.95 mg/dL 0.57-1.25 Specimen slightly hemolyzed GLUCOSE RANDOM (BEAKER) (test ldix=224) 129 mg/dL 70-105 CALCIUM (BEAKER) (test xdjw=534) 9.3 mg/dL 8.4-10.2 EGFR (BEAKER) (test hwnb=4260) 79 mL/min/1.73 sq m ESTIMATED GFR IS NOT ACCURATE CREATININE CLEARANCE IN PREDICTING GLOMERULAR FILTRATION RATE. ESTIMATED GFR IS NOT APPLICABLE FOR DIALYSIS PATIENTS. CBC W/PLT COUNT & AUTO [id number] 05:42:00* Test Item Value Reference Range Comments WHITE BLOOD CELL COUNT (BEAKER) (test xzvf=002) 9.5 K/ L 3.5-10.5 RED BLOOD CELL COUNT (BEAKER) (test qxly=089) 4.17 M/ L 4.63-6.08 HEMOGLOBIN (BEAKER) (test lzgf=978) 10.8 GM/DL 13.7-17.5 HEMATOCRIT (BEAKER) (test gmta=476) 34.1 % 40.1-51.0 MEAN CORPUSCULAR VOLUME (BEAKER) (test fjkd=423) 81.8 fL 79.0-92.2 MEAN CORPUSCULAR HEMOGLOBIN (BEAKER) (test xgpt=971) 25.9 pg 25.7-32.2 MEAN CORPUSCULAR HEMOGLOBIN CONC (BEAKER) (test sjtl=905) 31.7 GM/DL 32.3-36.5 RED CELL DISTRIBUTION WIDTH (BEAKER) (test elvf=883) 14.4 % 11.6-14.4 PLATELET COUNT (BEAKER) (test eond=258) 359 K/CU MM 150-450 MEAN PLATELET VOLUME (BEAKER) (test sqpi=126) 10.8 fL 9.4-12.4 NUCLEATED RED BLOOD CELLS (BEAKER) (test hnkh=167) 0 /100 WBC 0-0 NEUTROPHILS RELATIVE PERCENT (BEAKER) (test dpfq=030) 64 % LYMPHOCYTES RELATIVE PERCENT (BEAKER) (test qisf=985) 25 % MONOCYTES RELATIVE PERCENT (BEAKER) (test zqgn=229) 9 % EOSINOPHILS RELATIVE PERCENT (BEAKER) (test grqr=132) 1 % BASOPHILS RELATIVE PERCENT (BEAKER) (test dgmh=058) 0 % NEUTROPHILS ABSOLUTE COUNT (BEAKER) (test tmlf=822) 6.04 K/ L 1.78-5.38 LYMPHOCYTES ABSOLUTE COUNT (BEAKER) (test lvcc=883) 2.37 K/ L 1.32-3.57 MONOCYTES ABSOLUTE COUNT (BEAKER) (test ptaw=253) 0.84 K/ L 0.30-0.82 EOSINOPHILS ABSOLUTE COUNT (BEAKER) (test eucp=288) 0.11 K/ L 0.04-0.54 BASOPHILS ABSOLUTE COUNT (BEAKER) (test oquo=369) 0.04 K/ L 0.01-0.08 IMMATURE GRANULOCYTES-RELATIVE PERCENT (BEAKER) (test eysi=5239) 1 % 0-1 POCT-GLUCOSE [id number] 21:06:00* Test Item Value Reference Range Comments POC-GLUCOSE METER (BEAKER) (test acyt=9229) 193 mg/dL 70-110 TESTED AT [address] [address] POCT-GLUCOSE [id number] 18:02:00* Test Item Value Reference Range Comments POC-GLUCOSE METER (BEAKER) (test zovn=7837) 157 mg/dL 70-110 TESTED AT [address] [address] POCT-GLUCOSE [id number] 13:30:00* Test Item Value Reference Range Comments POC-GLUCOSE METER (BEAKER) (test aahn=1523) 171 mg/dL 70-110 TESTED AT [address] [address] POCT-GLUCOSE [id number] 10:41:00* Test Item Value Reference Range Comments POC-GLUCOSE METER (BEAKER) (test igsj=9813) 174 mg/dL 70-110 TESTED AT [address] [address] RAD, CHEST, 1 VIEW, NON [id number] 10:03:00Reason for exam:->pleural effusion Should this be performed at the bedside?->YesFINAL REPORT Comparison: 08/11/2018 TECHNIQUE: Single view of the chest FINDINGS: Lung volumes are low. Bibasilar densities may represent atelectasis otherwise lungs are clear. Cardiac silhouette is magnified by technique. No acute skeletal abnormality. Signed: Alex Childort Verified Date/Time: 08/12/2018 10:03:01 Reading Location: [facility] Radiology Reading Room [id number] 06:44:00* Test Item Value Reference Range Comments MAGNESIUM (BEAKER) (test dwjq=703) 2.2 mg/dL 1.6-2.6 BASIC METABOLIC [id number] 06:44:00* Test Item Value Reference Range Comments SODIUM (BEAKER) (test gjhk=164) 137 meq/L 136-145 POTASSIUM (BEAKER) (test kzal=587) 4.3 meq/L 3.5-5.1 CHLORIDE (BEAKER) (test lvyp=433) 101 meq/L 98-107 CO2 (BEAKER) (test okgx=390) 25 meq/L 22-29 BLOOD UREA NITROGEN (BEAKER) (test dchx=765) 22 mg/dL 7-21 CREATININE (BEAKER) (test gdpb=397) 0.92 mg/dL 0.57-1.25 GLUCOSE RANDOM (BEAKER) (test eczw=750) 135 mg/dL 70-105 CALCIUM (BEAKER) (test iyba=380) 9.3 mg/dL 8.4-10.2 EGFR (BEAKER) (test aldl=4241) 82 mL/min/1.73 sq m ESTIMATED GFR IS NOT ACCURATE CREATININE CLEARANCE IN PREDICTING GLOMERULAR FILTRATION RATE. ESTIMATED GFR IS NOT APPLICABLE FOR DIALYSIS PATIENTS. B-TYPE NATRIURETIC FACTOR (BNP)2018-08-12 06:39:00* Test Item Value Reference Range Comments B-TYPE NATRIURETIC PEPTIDE (BEAKER) (test rsbt=293) 142 pg/mL 0-100 CBC W/PLT COUNT & AUTO [id number] 06:24:00* Test Item Value Reference Range Comments WHITE BLOOD CELL COUNT (BEAKER) (test vaoy=289) 10.0 K/ L 3.5-10.5 RED BLOOD CELL COUNT (BEAKER) (test xiqq=892) 4.23 M/ L 4.63-6.08 HEMOGLOBIN (BEAKER) (test rikk=760) 10.9 GM/DL 13.7-17.5 HEMATOCRIT (BEAKER) (test wwpa=859) 34.9 % 40.1-51.0 MEAN CORPUSCULAR VOLUME (BEAKER) (test egea=316) 82.5 fL 79.0-92.2 MEAN CORPUSCULAR HEMOGLOBIN (BEAKER) (test vuyi=250) 25.8 pg 25.7-32.2 MEAN CORPUSCULAR HEMOGLOBIN CONC (BEAKER) (test jlzy=224) 31.2 GM/DL 32.3-36.5 RED CELL DISTRIBUTION WIDTH (BEAKER) (test oihc=109) 14.5 % 11.6-14.4 PLATELET COUNT (BEAKER) (test neel=901) 320 K/CU MM 150-450 MEAN PLATELET VOLUME (BEAKER) (test qiof=194) 10.6 fL 9.4-12.4 NUCLEATED RED BLOOD CELLS (BEAKER) (test xgrd=812) 0 /100 WBC 0-0 NEUTROPHILS RELATIVE PERCENT (BEAKER) (test mtqu=746) 61 % LYMPHOCYTES RELATIVE PERCENT (BEAKER) (test qbqm=876) 25 % MONOCYTES RELATIVE PERCENT (BEAKER) (test iaep=732) 10 % EOSINOPHILS RELATIVE PERCENT (BEAKER) (test cifp=644) 2 % BASOPHILS RELATIVE PERCENT (BEAKER) (test alqc=420) 1 % NEUTROPHILS ABSOLUTE COUNT (BEAKER) (test utwq=794) 6.08 K/ L 1.78-5.38 LYMPHOCYTES ABSOLUTE COUNT (BEAKER) (test tpvu=330) 2.54 K/ L 1.32-3.57 MONOCYTES ABSOLUTE COUNT (BEAKER) (test toxf=305) 1.02 K/ L 0.30-0.82 EOSINOPHILS ABSOLUTE COUNT (BEAKER) (test ypcu=276) 0.22 K/ L 0.04-0.54 BASOPHILS ABSOLUTE COUNT (BEAKER) (test xhmx=512) 0.05 K/ L 0.01-0.08 IMMATURE GRANULOCYTES-RELATIVE PERCENT (BEAKER) (test xrwd=8922) 1 % 0-1 POCT-GLUCOSE [id number] 22:15:00* Test Item Value Reference Range Comments POC-GLUCOSE METER (BEAKER) (test amia=1530) 219 mg/dL 70-110 TESTED AT [address] [address] POCT-GLUCOSE [id number] 19:32:00* Test Item Value Reference Range Comments POC-GLUCOSE METER (BEAKER) (test kbwy=2636) 118 mg/dL 70-110 TESTED AT [address] [address] POCT-GLUCOSE [id number] 19:02:00* Test Item Value Reference Range Comments POC-GLUCOSE METER (BEAKER) (test hgtl=4771) 143 mg/dL 70-110 TESTED AT [place] [id number] [facility] [address] POCT-GLUCOSE [id number] 12:51:00* Test Item Value Reference Range Comments POC-GLUCOSE METER (BEAKER) (test tcwc=2710) 179 mg/dL 70-110 TESTED AT [place] [id number] [facility] [address] POCT-GLUCOSE [id number] 09:47:00* Test Item Value Reference Range Comments POC-GLUCOSE METER (BEAKER) (test vubx=8550) 148 mg/dL 70-110 TESTED AT [address] [address] POCT-GLUCOSE [id number] 07:57:00* Test Item Value Reference Range Comments POC-GLUCOSE METER (BEAKER) (test yfip=0076) 163 mg/dL 70-110 TESTED AT [address] [address] RAD, CHEST, 1 VIEW, NON [id number] 06:27:00Reason for exam:->pleural effusion Should this be performed at the bedside?->YesFINAL REPORT RAD, CHEST, 1 VIEW, NON DEPT INDICATION: pleural effusion COMPARISON: Prior day's exam FINDINGS: Portable frontal view of the chest. FINDINGS: Cardiac silhouette is enlarged. Unchanged atelectasis or consolidation in the lung bases, more so on the left side. A valve replacement remains. Unchanged small right-sided apical pneumothorax. Degenerative changes are noted. IMPRESSION: Unchanged small right-sided apical pneumothorax. Signed: Jeremy Bourgeois MDReport Verified Date/Time: 08/11/2018 06:27:47 Reading Location: [address] Neuro Reading Room [id number] 06:24:00* Test Item Value Reference Range Comments MAGNESIUM (BEAKER) (test hgpc=440) 2.2 mg/dL 1.6-2.6 BASIC METABOLIC [id number] 06:24:00* Test Item Value Reference Range Comments SODIUM (BEAKER) (test aanx=942) 138 meq/L 136-145 POTASSIUM (BEAKER) (test knmv=220) 4.3 meq/L 3.5-5.1 CHLORIDE (BEAKER) (test vshh=068) 102 meq/L 98-107 CO2 (BEAKER) (test nrje=235) 28 meq/L 22-29 BLOOD UREA NITROGEN (BEAKER) (test jxga=455) 22 mg/dL 7-21 CREATININE (BEAKER) (test nynn=901) 0.87 mg/dL 0.57-1.25 GLUCOSE RANDOM (BEAKER) (test ijgb=783) 142 mg/dL 70-105 CALCIUM (BEAKER) (test pnkr=512) 9.0 mg/dL 8.4-10.2 EGFR (BEAKER) (test ykhk=3907) 87 mL/min/1.73 sq m ESTIMATED GFR IS NOT ACCURATE CREATININE CLEARANCE IN PREDICTING GLOMERULAR FILTRATION RATE. ESTIMATED GFR IS NOT APPLICABLE FOR DIALYSIS PATIENTS. CBC W/PLT COUNT & AUTO [id number] 05:54:00* Test Item Value Reference Range Comments WHITE BLOOD CELL COUNT (BEAKER) (test hnut=839) 10.5 K/ L 3.5-10.5 RED BLOOD CELL COUNT (BEAKER) (test aukh=962) 3.93 M/ L 4.63-6.08 HEMOGLOBIN (BEAKER) (test bnjt=424) 10.4 GM/DL 13.7-17.5 HEMATOCRIT (BEAKER) (test zccq=961) 32.3 % 40.1-51.0 MEAN CORPUSCULAR VOLUME (BEAKER) (test ianf=349) 82.2 fL 79.0-92.2 MEAN CORPUSCULAR HEMOGLOBIN (BEAKER) (test rung=426) 26.5 pg 25.7-32.2 MEAN CORPUSCULAR HEMOGLOBIN CONC (BEAKER) (test djmz=349) 32.2 GM/DL 32.3-36.5 RED CELL DISTRIBUTION WIDTH (BEAKER) (test budm=408) 14.4 % 11.6-14.4 PLATELET COUNT (BEAKER) (test qxun=670) 265 K/CU MM 150-450 MEAN PLATELET VOLUME (BEAKER) (test mjgd=723) 10.9 fL 9.4-12.4 NUCLEATED RED BLOOD CELLS (BEAKER) (test swrg=856) 0 /100 WBC 0-0 NEUTROPHILS RELATIVE PERCENT (BEAKER) (test eahs=967) 64 % LYMPHOCYTES RELATIVE PERCENT (BEAKER) (test bdbd=425) 23 % MONOCYTES RELATIVE PERCENT (BEAKER) (test uuoq=967) 9 % EOSINOPHILS RELATIVE PERCENT (BEAKER) (test wqoi=722) 2 % BASOPHILS RELATIVE PERCENT (BEAKER) (test rret=124) 0 % NEUTROPHILS ABSOLUTE COUNT (BEAKER) (test uzps=013) 6.76 K/ L 1.78-5.38 LYMPHOCYTES ABSOLUTE COUNT (BEAKER) (test ixya=959) 2.44 K/ L 1.32-3.57 MONOCYTES ABSOLUTE COUNT (BEAKER) (test lrxg=590) 0.96 K/ L 0.30-0.82 EOSINOPHILS ABSOLUTE COUNT (BEAKER) (test qwjp=919) 0.24 K/ L 0.04-0.54 BASOPHILS ABSOLUTE COUNT (BEAKER) (test ckhh=298) 0.03 K/ L 0.01-0.08 IMMATURE GRANULOCYTES-RELATIVE PERCENT (BEAKER) (test pnxz=8522) 1 % 0-1 POCT-GLUCOSE [id number] 21:02:00* Test Item Value Reference Range Comments POC-GLUCOSE METER (BEAKER) (test ncpe=3381) 197 mg/dL 70-110 TESTED AT [place] [id number] [facility] [address] POCT-GLUCOSE [id number] 17:53:00* Test Item Value Reference Range Comments POC-GLUCOSE METER (BEAKER) (test qlmk=7008) 193 mg/dL 70-110 TESTED AT [address] [address] TISSUE [id number] 14:06:00Surgical Pathology Report Case: [id number] Authorizing Provider: Kenneth Pham, Collected: 08/04/2018 Meek DURAN Ordering Location: [facility] Received: 08/04/2018 1544 PERIOPERATIVE SERVICES Pathologist: Jason Rincon MD Specimen: Aortic Valve HEART, AORTIC VALVE, VALVULECTOMY:THREE LEAFLETS WITH NODULAR CALCIFIC ATHEROSCLEROTIC THICKENING AND FOCAL NEOVASCULARITY Signing Pathologist Direct Phone Line: [phone] signed by Jason Rincon MD on 08/10/2018 at 2:06 [id number]; [id number] valve diseaseAortic valve The specimen is received in a formalin-filled container and labeled with the patient's information labeled "aortic valve" and consists of three yellow-white calcified leaflets measuring 3 x 1.5 x 0.3 cm. Home Health Specialist sections are submitted A1 for decalcification. CG/pl PerformedPOCT-GLUCOSE [id number] 11:45:00* Test Item Value Reference Range Comments POC-GLUCOSE METER (BEAKER) (test ojrm=3849) 262 mg/dL 70-[address] [facility] [address] [facility] [address] POCT-GLUCOSE [id number] 08:01:00* Test Item Value Reference Range Comments POC-GLUCOSE METER (BEAKER) (test jgza=8301) 189 mg/dL 70-[address] [facility] [address] [facility] [address] RAD, CHEST, 1 VIEW, NON [id number] 07:54:00Reason for exam:->pleural effusionShould this be performed at the bedside?->YesFINAL REPORT Portable chest. CLINICAL HISTORY: pleural effusion. COMPARISON STUDY: Chest x-ray from yesterday. FINDINGS: The cardiac silhouette is enlarged. The pulmonary parenchyma demonstrates atelectasis or consolidation in the lung bases, more so on the left side but improved from previous. The right chest tubes have been removed. A valve replacement remains. Again seen is a small right-sided apical pneumothorax. Degenerative changes are noted. IMPRESSION: Significant improvement in pulmonary opacities with removal of right-sided chest tube. Stable tiny right-sided apical pneumothorax. Signed: [facility] Verified Date/Time: 08/10/2018 07:54:53 Reading Location: [facility] Radiology Reading Room W/PLT COUNT & AUTO [id number] 04:39:00* Test Item Value Reference Range Comments WHITE BLOOD CELL COUNT (BEAKER) (test jvru=714) 12.7 K/ L 3.5-10.5 RED BLOOD CELL COUNT (BEAKER) (test viql=996) 4.02 M/ L 4.63-6.08 HEMOGLOBIN (BEAKER) (test glrd=180) 10.4 GM/DL 13.7-17.5 HEMATOCRIT (BEAKER) (test ocwq=130) 32.9 % 40.1-51.0 MEAN CORPUSCULAR VOLUME (BEAKER) (test owyn=495) 81.8 fL 79.0-92.2 MEAN CORPUSCULAR HEMOGLOBIN (BEAKER) (test fljy=770) 25.9 pg 25.7-32.2 MEAN CORPUSCULAR HEMOGLOBIN CONC (BEAKER) (test hnbk=622) 31.6 GM/DL 32.3-36.5 RED CELL DISTRIBUTION WIDTH (BEAKER) (test pemw=425) 14.5 % 11.6-14.4 PLATELET COUNT (BEAKER) (test mita=038) 251 K/CU MM 150-450 MEAN PLATELET VOLUME (BEAKER) (test pyrs=079) 10.8 fL 9.4-12.4 NUCLEATED RED BLOOD CELLS (BEAKER) (test yafc=671) 0 /100 WBC 0-0 NEUTROPHILS RELATIVE PERCENT (BEAKER) (test jlkw=969) 69 % LYMPHOCYTES RELATIVE PERCENT (BEAKER) (test uqhn=176) 20 % MONOCYTES RELATIVE PERCENT (BEAKER) (test tfsq=454) 9 % EOSINOPHILS RELATIVE PERCENT (BEAKER) (test zdmi=417) 1 % BASOPHILS RELATIVE PERCENT (BEAKER) (test tfui=703) 0 % NEUTROPHILS ABSOLUTE COUNT (BEAKER) (test pdjd=069) 8.78 K/ L 1.78-5.38 LYMPHOCYTES ABSOLUTE COUNT (BEAKER) (test kqix=792) 2.48 K/ L 1.32-3.57 MONOCYTES ABSOLUTE COUNT (BEAKER) (test dtox=856) 1.11 K/ L 0.30-0.82 EOSINOPHILS ABSOLUTE COUNT (BEAKER) (test aabj=370) 0.13 K/ L 0.04-0.54 BASOPHILS ABSOLUTE COUNT (BEAKER) (test rjoi=060) 0.03 K/ L 0.01-0.08 IMMATURE GRANULOCYTES-RELATIVE PERCENT (BEAKER) (test fwka=2392) 1 % 0-1 [id number] 04:29:00* Test Item Value Reference Range Comments MAGNESIUM (BEAKER) (test ruzo=656) 1.8 mg/dL 1.6-2.6 BASIC METABOLIC [id number] 04:29:00* Test Item Value Reference Range Comments SODIUM (BEAKER) (test lefg=490) 136 meq/L 136-145 POTASSIUM (BEAKER) (test lwgj=468) 3.9 meq/L 3.5-5.1 CHLORIDE (BEAKER) (test jzkd=474) 99 meq/L 98-107 CO2 (BEAKER) (test atbe=182) 26 meq/L 22-29 BLOOD UREA NITROGEN (BEAKER) (test mumh=008) 19 mg/dL 7-21 CREATININE (BEAKER) (test xyqn=960) 0.85 mg/dL 0.57-1.25 GLUCOSE RANDOM (BEAKER) (test ijzw=135) 158 mg/dL 70-105 CALCIUM (BEAKER) (test vkdr=753) 9.1 mg/dL 8.4-10.2 EGFR (BEAKER) (test ktbe=8404) 90 mL/min/1.73 sq m ESTIMATED GFR IS NOT ACCURATE CREATININE CLEARANCE IN PREDICTING GLOMERULAR FILTRATION RATE. ESTIMATED GFR IS NOT APPLICABLE FOR DIALYSIS PATIENTS. POCT-GLUCOSE [id number] 22:18:00* Test Item Value Reference Range Comments POC-GLUCOSE METER (BEAKER) (test tudg=5430) 212 mg/dL 70-110 TESTED AT [address] [address] POCT-GLUCOSE [id number] 19:16:00* Test Item Value Reference Range Comments POC-GLUCOSE METER (BEAKER) (test cgrn=7184) 230 mg/dL 70-110 TESTED AT [address] [address] [id number] 15:33:00* Test Item Value Reference Range Comments POTASSIUM (BEAKER) (test okix=308) 4.3 meq/L 3.5-5.1 POCT-GLUCOSE [id number] 12:07:00* Test Item Value Reference Range Comments POC-GLUCOSE METER (BEAKER) (test vqqv=0902) 204 mg/dL 70-110 TESTED AT [address] [address] POCT-GLUCOSE [id number] 08:01:00* Test Item Value Reference Range Comments POC-GLUCOSE METER (BEAKER) (test edat=7626) 163 mg/dL 70-110 TESTED AT [address] [address] [id number] 06:45:00* Test Item Value Reference Range Comments MAGNESIUM (BEAKER) (test fshr=867) 2.3 mg/dL 1.6-2.6 Specimen slightly hemolyzed BASIC METABOLIC [id number] 06:45:00* Test Item Value Reference Range Comments SODIUM (BEAKER) (test xgyf=545) 139 meq/L 136-145 POTASSIUM (BEAKER) (test sowx=076) 4.3 meq/L 3.5-5.1 Specimen slightly hemolyzed CHLORIDE (BEAKER) (test mwmz=943) 103 meq/L 98-107 CO2 (BEAKER) (test clcw=074) 25 meq/L 22-29 BLOOD UREA NITROGEN (BEAKER) (test lobg=523) 18 mg/dL 7-21 CREATININE (BEAKER) (test knlz=128) 0.77 mg/dL 0.57-1.25 Specimen slightly hemolyzed GLUCOSE RANDOM (BEAKER) (test gltv=372) 145 mg/dL 70-105 CALCIUM (BEAKER) (test owni=704) 8.9 mg/dL 8.4-10.2 EGFR (BEAKER) (test trhl=0267) 100 mL/min/1.73 sq m ESTIMATED GFR IS NOT ACCURATE CREATININE CLEARANCE IN PREDICTING GLOMERULAR FILTRATION RATE. ESTIMATED GFR IS NOT APPLICABLE FOR DIALYSIS PATIENTS. CBC W/PLT COUNT & AUTO [id number] 05:25:00* Test Item Value Reference Range Comments WHITE BLOOD CELL COUNT (BEAKER) (test sgpa=023) 9.5 K/ L 3.5-10.5 RED BLOOD CELL COUNT (BEAKER) (test clww=306) 3.76 M/ L 4.63-6.08 HEMOGLOBIN (BEAKER) (test rtbo=966) 10.0 GM/DL 13.7-17.5 HEMATOCRIT (BEAKER) (test tafl=702) 30.7 % 40.1-51.0 MEAN CORPUSCULAR VOLUME (BEAKER) (test ggqq=601) 81.6 fL 79.0-92.2 MEAN CORPUSCULAR HEMOGLOBIN (BEAKER) (test xxza=038) 26.6 pg 25.7-32.2 MEAN CORPUSCULAR HEMOGLOBIN CONC (BEAKER) (test ivpk=791) 32.6 GM/DL 32.3-36.5 RED CELL DISTRIBUTION WIDTH (BEAKER) (test ppne=667) 14.6 % 11.6-14.4 PLATELET COUNT (BEAKER) (test gmsj=032) 207 K/CU MM 150-450 MEAN PLATELET VOLUME (BEAKER) (test qhpr=691) 11.1 fL 9.4-12.4 NUCLEATED RED BLOOD CELLS (BEAKER) (test qvxc=374) 0 /100 WBC 0-0 NEUTROPHILS RELATIVE PERCENT (BEAKER) (test sggt=767) 63 % LYMPHOCYTES RELATIVE PERCENT (BEAKER) (test fvpi=351) 23 % MONOCYTES RELATIVE PERCENT (BEAKER) (test nsbu=224) 12 % EOSINOPHILS RELATIVE PERCENT (BEAKER) (test jieg=454) 2 % BASOPHILS RELATIVE PERCENT (BEAKER) (test qdsu=445) 0 % NEUTROPHILS ABSOLUTE COUNT (BEAKER) (test nnyz=112) 5.91 K/ L 1.78-5.38 LYMPHOCYTES ABSOLUTE COUNT (BEAKER) (test vujy=053) 2.21 K/ L 1.32-3.57 MONOCYTES ABSOLUTE COUNT (BEAKER) (test pmxg=038) 1.11 K/ L 0.30-0.82 EOSINOPHILS ABSOLUTE COUNT (BEAKER) (test uvtp=623) 0.15 K/ L 0.04-0.54 BASOPHILS ABSOLUTE COUNT (BEAKER) (test fqhl=172) 0.03 K/ L 0.01-0.08 IMMATURE GRANULOCYTES-RELATIVE PERCENT (BEAKER) (test ancy=1361) 1 % 0-1 RAD, CHEST, 1 VIEW, NON [id number] 04:34:00Reason for exam:->pleural effusionShould this be performed at the bedside?->YesFINAL REPORT CLINICAL INDICATION: Pleural effusion Comparison: 08/08/2018 The cardiomediastinal contours are stable. The lung volumes remain low. Central pulmonary vascular congestion and bilateral parenchymal and pleural opacities are unchanged. A small right apical pneumothorax has approximately 1.5 cm of pleural separation. Right chest tubes remain in place. Signed: Jourdan Castle MDR[facility]ort Verified Date/Time: 08/09/2018 04:34:34 Reading Location: [address] Reading Room SSIUM-STAT [id number] 00:45:00* Test Item Value Reference Range Comments POTASSIUM (BEAKER) (test yjue=782) 3.7 meq/L 3.6-5.5 [id number] 00:39:00* Test Item Value Reference Range Comments MAGNESIUM (BEAKER) (test atyj=715) 2.4 mg/dL 1.6-2.6 Specimen slightly hemolyzed CALCIUM, [id number] 00:36:00* Test Item Value Reference Range Comments CALCIUM IONIZED (BEAKER) (test nqzg=213) 1.14 mmol/L 1.12-1.27 PH, BLOOD (BEAKER) (test iqrs=1265) 7.48 POCT-GLUCOSE [id number] 22:09:00* Test Item Value Reference Range Comments POC-GLUCOSE METER (BEAKER) (test vxze=9184) 182 mg/dL 70-110 TESTED AT [address] [address] POCT-GLUCOSE [id number] 18:15:00* Test Item Value Reference Range Comments POC-GLUCOSE METER (BEAKER) (test vvgw=6128) 149 mg/dL 70-110 TESTED AT [address] [address] POCT-GLUCOSE [id number] 12:37:00* Test Item Value Reference Range Comments POC-GLUCOSE METER (BEAKER) (test poxf=8972) 183 mg/dL 70-110 TESTED AT [address] [address] HEMOGLOBIN [id number] 08:26:00* Test Item Value Reference Range Comments HEMOGLOBIN A1C (BEAKER) (test obhl=881) 7.8 % 4.3-6.1 POCT-GLUCOSE [id number] 08:09:00* Test Item Value Reference Range Comments POC-GLUCOSE METER (BEAKER) (test dxye=7047) 153 mg/dL 70-110 TESTED AT [address] [address] [id number] 05:54:00* Test Item Value Reference Range Comments MAGNESIUM (BEAKER) (test tlli=646) 1.9 mg/dL 1.6-2.6 BASIC METABOLIC [id number] 05:54:00* Test Item Value Reference Range Comments SODIUM (BEAKER) (test imhc=622) 142 meq/L 136-145 POTASSIUM (BEAKER) (test isvl=425) 3.9 meq/L 3.5-5.1 CHLORIDE (BEAKER) (test znvf=895) 106 meq/L 98-107 CO2 (BEAKER) (test roip=265) 27 meq/L 22-29 BLOOD UREA NITROGEN (BEAKER) (test hwll=722) 19 mg/dL 7-21 CREATININE (BEAKER) (test gcas=654) 0.75 mg/dL 0.57-1.25 GLUCOSE RANDOM (BEAKER) (test wmhb=556) 148 mg/dL 70-105 CALCIUM (BEAKER) (test ychy=580) 8.8 mg/dL 8.4-10.2 EGFR (BEAKER) (test squa=4148) 104 mL/min/1.73 sq m ESTIMATED GFR IS NOT ACCURATE CREATININE CLEARANCE IN PREDICTING GLOMERULAR FILTRATION RATE. ESTIMATED GFR IS NOT APPLICABLE FOR DIALYSIS PATIENTS. CBC W/PLT COUNT & AUTO [id number] 04:16:00* Test Item Value Reference Range Comments WHITE BLOOD CELL COUNT (BEAKER) (test tozj=069) 8.7 K/ L 3.5-10.5 RED BLOOD CELL COUNT (BEAKER) (test wseh=094) 3.51 M/ L 4.63-6.08 HEMOGLOBIN (BEAKER) (test lyiw=668) 9.4 GM/DL 13.7-17.5 HEMATOCRIT (BEAKER) (test oqkp=393) 28.8 % 40.1-51.0 MEAN CORPUSCULAR VOLUME (BEAKER) (test tklq=005) 82.1 fL 79.0-92.2 MEAN CORPUSCULAR HEMOGLOBIN (BEAKER) (test etyf=712) 26.8 pg 25.7-32.2 MEAN CORPUSCULAR HEMOGLOBIN CONC (BEAKER) (test kolm=228) 32.6 GM/DL 32.3-36.5 RED CELL DISTRIBUTION WIDTH (BEAKER) (test eikp=396) 14.8 % 11.6-14.4 PLATELET COUNT (BEAKER) (test hlnn=840) 158 K/CU MM 150-450 MEAN PLATELET VOLUME (BEAKER) (test nqpr=632) 10.9 fL 9.4-12.4 NUCLEATED RED BLOOD CELLS (BEAKER) (test xkda=883) 0 /100 WBC 0-0 NEUTROPHILS RELATIVE PERCENT (BEAKER) (test dsfb=909) 70 % LYMPHOCYTES RELATIVE PERCENT (BEAKER) (test mhtl=977) 20 % MONOCYTES RELATIVE PERCENT (BEAKER) (test eqwt=545) 9 % EOSINOPHILS RELATIVE PERCENT (BEAKER) (test gltq=061) 1 % BASOPHILS RELATIVE PERCENT (BEAKER) (test swgf=320) 0 % NEUTROPHILS ABSOLUTE COUNT (BEAKER) (test vcru=609) 6.07 K/ L 1.78-5.38 LYMPHOCYTES ABSOLUTE COUNT (BEAKER) (test ztrc=764) 1.70 K/ L 1.32-3.57 MONOCYTES ABSOLUTE COUNT (BEAKER) (test bkkw=812) 0.77 K/ L 0.30-0.82 EOSINOPHILS ABSOLUTE COUNT (BEAKER) (test axao=244) 0.11 K/ L 0.04-0.54 BASOPHILS ABSOLUTE COUNT (BEAKER) (test zcea=114) 0.03 K/ L 0.01-0.08 IMMATURE GRANULOCYTES-RELATIVE PERCENT (BEAKER) (test mwhz=0076) 1 % 0-1 RAD, CHEST, 1 VIEW, NON [id number] 03:59:00Reason for exam:->pleural effusionShould this be performed at the bedside?->YesFINAL REPORT CLINICAL INDICATION: Pleural effusion Comparison: 08/07/2018 The cardiomediastinal contours are stable. The lung volumes remain low. Central pulmonary vascular congestion and bilateral parenchymal and pleural opacities are similar within variation of acquisition technique. There is no pneumothorax. Right-sided chest tubes remain in place. Signed: Jourdan Castle [facility] Verified Date/Time: 08/08/2018 03:59:06 Reading Location: [address] Reading Room D [id number] 00:16:00* Test Item Value Reference Range Comments TRIGLYCERIDES (BEAKER) (test rnmr=494) 154 mg/dL CHOLESTEROL (BEAKER) (test hcxf=636) 138 mg/dL HDL CHOLESTEROL (BEAKER) (test hnmn=534) 26 mg/dL LDL CHOLESTEROL CALCULATED (BEAKER) (test newa=105) 81 mg/dL Triglyceride Reference Range: Low Risk <150 Borderline 150-199 High Risk 200-499 Very High Risk >=500Cholesterol Reference Range: Low Risk <200 Borderline 200-239 High Risk >240HDL Cholesterol Reference Range: Low Risk >=60 High Risk <40LDL Cholesterol Reference Range: Optimal <100 Near Optimal 100-129 Borderline 130-159 High 160-189 Very High >=190 POCT- GLUCOSE [id number] 23:52:00* Test Item Value Reference Range Comments POC-GLUCOSE METER (BEAKER) (test wvgm=9157) 237 mg/dL 70-[address] [facility] [address] [facility] [address] [id number] 18:42:00* Test Item Value Reference Range Comments MAGNESIUM (BEAKER) (test xfpp=906) 1.9 mg/dL 1.6-2.6 Check Serum Magnesium level 2 hours after IV magnesium replacement.BASIC METABOLIC [id number] 18:42:00* Test Item Value Reference Range Comments SODIUM (BEAKER) (test lbty=472) 139 meq/L 136-145 POTASSIUM (BEAKER) (test uiqd=036) 3.8 meq/L 3.5-5.1 CHLORIDE (BEAKER) (test omyb=283) 105 meq/L 98-107 CO2 (BEAKER) (test zmvs=122) 28 meq/L 22-29 BLOOD UREA NITROGEN (BEAKER) (test hkle=323) 20 mg/dL 7-21 CREATININE (BEAKER) (test pwrp=041) 0.74 mg/dL 0.57-1.25 GLUCOSE RANDOM (BEAKER) (test ucpr=398) 114 mg/dL 70-105 CALCIUM (BEAKER) (test yani=750) 8.8 mg/dL 8.4-10.2 EGFR (BEAKER) (test otci=8058) 105 mL/min/1.73 sq m ESTIMATED GFR IS NOT ACCURATE CREATININE CLEARANCE IN PREDICTING GLOMERULAR FILTRATION RATE. ESTIMATED GFR IS NOT APPLICABLE FOR DIALYSIS PATIENTS. Check Serum Magnesium level 2 hours after IV magnesium replacement.CALCIUM, [id number] 18:22:00* Test Item Value Reference Range Comments CALCIUM IONIZED (BEAKER) (test szuq=710) 1.12 mmol/L 1.12-1.27 PH, BLOOD (BEAKER) (test bkiy=0857) 7.45 Check serum Ionized Calcium level after 4 hours after IV Calcium replacement. POCT-GLUCOSE [id number] 17:25:00* Test Item Value Reference Range Comments POC-GLUCOSE METER (BEAKER) (test ljxt=3502) 116 mg/dL 70-[address] [facility] [address] [facility] [address] POCT-GLUCOSE [id number] 12:49:00* Test Item Value Reference Range Comments POC-GLUCOSE METER (BEAKER) (test ipkk=9300) 209 mg/dL 70-[address] [facility] [address] [facility] [address] POCT-GLUCOSE [id number] 08:11:00* Test Item Value Reference Range Comments POC-GLUCOSE METER (BEAKER) (test xhuh=9952) 173 mg/dL 70-110 TESTED AT [address] [address] RAD, CHEST, 1 VIEW, NON [id number] 08:02:00Reason for exam:->pleural effusionShould this be performed at the bedside?->YesFINAL REPORT Chest, one view HISTORY: Pleural effusion Comparison: 08/06/2018 Findings: Probable bilateral pleural effusions and bibasilar atelectasis/airspace disease. Right chest tubes appear unchanged in position. No pneumothorax is apparent. IMPRESSION: No significant interval change. Signed: Oscar Hyman Verified Date/Time: 08/07/2018 08:02:29 Reading Locati on: [facility] Diagnostic Imaging Reading Room - [place] [address] Electronically sig cathi by: OSCAR HYMAN MD on 08/07/2018 08:02 AM [id number] 05:23:00* Test Item Value Reference Range Comments MAGNESIUM (BEAKER) (test owaf=512) 2.0 mg/dL 1.6-2.6 BASIC METABOLIC [id number] 05:23:00* Test Item Value Reference Range Comments SODIUM (BEAKER) (test wnfq=595) 140 meq/L 136-145 POTASSIUM (BEAKER) (test abbq=796) 4.0 meq/L 3.5-5.1 CHLORIDE (BEAKER) (test sgzp=533) 105 meq/L 98-107 CO2 (BEAKER) (test qdwj=659) 28 meq/L 22-29 BLOOD UREA NITROGEN (BEAKER) (test coav=252) 19 mg/dL 7-21 CREATININE (BEAKER) (test mqnk=864) 0.80 mg/dL 0.57-1.25 GLUCOSE RANDOM (BEAKER) (test ebka=137) 144 mg/dL 70-105 CALCIUM (BEAKER) (test qfwp=375) 8.7 mg/dL 8.4-10.2 EGFR (BEAKER) (test fygq=7883) 96 mL/min/1.73 sq m ESTIMATED GFR IS NOT ACCURATE CREATININE CLEARANCE IN PREDICTING GLOMERULAR FILTRATION RATE. ESTIMATED GFR IS NOT APPLICABLE FOR DIALYSIS PATIENTS. CBC W/PLT COUNT & AUTO [id number] 05:16:00* Test Item Value Reference Range Comments WHITE BLOOD CELL COUNT (BEAKER) (test ksgv=704) 12.0 K/ L 3.5-10.5 RED BLOOD CELL COUNT (BEAKER) (test jtoh=227) 3.27 M/ L 4.63-6.08 HEMOGLOBIN (BEAKER) (test ghgz=545) 8.7 GM/DL 13.7-17.5 HEMATOCRIT (BEAKER) (test acpa=487) 27.5 % 40.1-51.0 MEAN CORPUSCULAR VOLUME (BEAKER) (test vspp=005) 84.1 fL 79.0-92.2 MEAN CORPUSCULAR HEMOGLOBIN (BEAKER) (test euqu=290) 26.6 pg 25.7-32.2 MEAN CORPUSCULAR HEMOGLOBIN CONC (BEAKER) (test qcsq=316) 31.6 GM/DL 32.3-36.5 RED CELL DISTRIBUTION WIDTH (BEAKER) (test lshc=819) 15.0 % 11.6-14.4 PLATELET COUNT (BEAKER) (test brqf=606) 122 K/CU MM 150-450 MEAN PLATELET VOLUME (BEAKER) (test rdps=261) 11.4 fL 9.4-12.4 NUCLEATED RED BLOOD CELLS (BEAKER) (test ejqv=833) 0 /100 WBC 0-0 NEUTROPHILS RELATIVE PERCENT (BEAKER) (test nqxq=808) 80 % LYMPHOCYTES RELATIVE PERCENT (BEAKER) (test ihpf=989) 12 % MONOCYTES RELATIVE PERCENT (BEAKER) (test hkwl=347) 7 % EOSINOPHILS RELATIVE PERCENT (BEAKER) (test klpo=595) 0 % BASOPHILS RELATIVE PERCENT (BEAKER) (test xmyi=600) 0 % NEUTROPHILS ABSOLUTE COUNT (BEAKER) (test pqmt=415) 9.63 K/ L 1.78-5.38 LYMPHOCYTES ABSOLUTE COUNT (BEAKER) (test zdtc=721) 1.44 K/ L 1.32-3.57 MONOCYTES ABSOLUTE COUNT (BEAKER) (test hjcx=445) 0.83 K/ L 0.30-0.82 EOSINOPHILS ABSOLUTE COUNT (BEAKER) (test oceh=376) 0.03 K/ L 0.04-0.54 BASOPHILS ABSOLUTE COUNT (BEAKER) (test awma=015) 0.02 K/ L 0.01-0.08 IMMATURE GRANULOCYTES-RELATIVE PERCENT (BEAKER) (test sgwh=5418) 1 % 0-1 POCT-GLUCOSE [id number] 22:28:00* Test Item Value Reference Range Comments POC-GLUCOSE METER (BEAKER) (test hkul=0300) 147 mg/dL 70-110 TESTED AT [address] [address] [id number] 22:14:00* Test Item Value Reference Range Comments POTASSIUM (BEAKER) (test lihp=487) 3.9 meq/L 3.5-5.1 [id number] 22:14:00* Test Item Value Reference Range Comments MAGNESIUM (BEAKER) (test xmwv=295) 2.3 mg/dL 1.6-2.6 POCT-GLUCOSE [id number] 17:27:00* Test Item Value Reference Range Comments POC-GLUCOSE METER (BEAKER) (test bpcf=6871) 172 mg/dL 70-110 TESTED AT [address] [address] POCT-GLUCOSE [id number] 13:39:00* Test Item Value Reference Range Comments POC-GLUCOSE METER (BEAKER) (test vmer=6239) 216 mg/dL 70-110 TESTED AT [address] [address] RAD, CHEST, 1 VIEW, NON [id number] 08:53:00Reason for exam:->pleural effusionShould this be performed at the bedside?->YesFINAL REPORT Follow up Chest radiograph Clinical History: Support linesComparison: Earlier the same dayViews: One AP lordotic Chest x-ray:The cardiac and mediastinal silhouettes are unchanged. There is no evidence of a pneumothorax. There is evidence of bilateral pleural effusions. There is evidence of overt cardiac failure. There is evidence of bibasilar focal parenchymal opacities. A right internal jugular catheter, and a right chest tube are satisfactorily positioned and unchanged. Impression:Interval extubation. Interval removal of a nasogastric tubeIncreased bibasilar atelectasis and increased pulmonary vascular congestion Signed: Veronica Lorenzo Verified D ate/Time: 08/06/2018 08:53:34 Reading Location: [facility] Radiology Reading Room -GLUCOSE [id number] 06:54:00* Test Item Value Reference Range Comments POC-GLUCOSE METER (BEAKER) (test aqvt=4619) 184 mg/dL 70-[address] [facility] [address] [facility] [address] [id number] 06:44:00* Test Item Value Reference Range Comments MAGNESIUM (BEAKER) (test sbwy=817) 2.3 mg/dL 1.6-2.6 Specimen slightly hemolyzed [id number] 06:44:00* Test Item Value Reference Range Comments PHOSPHORUS (BEAKER) (test pxfl=218) 2.6 mg/dL 2.3-4.7 Specimen slightly hemolyzed BASIC METABOLIC [id number] 06:44:00* Test Item Value Reference Range Comments SODIUM (BEAKER) (test dacq=592) 143 meq/L 136-145 POTASSIUM (BEAKER) (test pugv=623) 4.4 meq/L 3.5-5.1 Specimen slightly hemolyzed CHLORIDE (BEAKER) (test vwii=366) 110 meq/L 98-107 CO2 (BEAKER) (test hjty=774) 25 meq/L 22-29 BLOOD UREA NITROGEN (BEAKER) (test jgoa=470) 12 mg/dL 7-21 CREATININE (BEAKER) (test zpom=543) 0.77 mg/dL 0.57-1.25 Specimen slightly hemolyzed GLUCOSE RANDOM (BEAKER) (test mvwy=859) 156 mg/dL 70-105 CALCIUM (BEAKER) (test hnox=939) 8.7 mg/dL 8.4-10.2 EGFR (BEAKER) (test rwtw=9901) 100 mL/min/1.73 sq m ESTIMATED GFR IS NOT ACCURATE CREATININE CLEARANCE IN PREDICTING GLOMERULAR FILTRATION RATE. ESTIMATED GFR IS NOT APPLICABLE FOR DIALYSIS PATIENTS. CBC (HEMOGRAM ONLY)2018-08-06 06:30:00* Test Item Value Reference Range Comments WHITE BLOOD CELL COUNT (BEAKER) (test bbld=537) 14.6 K/ L 3.5-10.5 RED BLOOD CELL COUNT (BEAKER) (test bkpe=956) 3.52 M/ L 4.63-6.08 HEMOGLOBIN (BEAKER) (test fpwr=024) 9.4 GM/DL 13.7-17.5 HEMATOCRIT (BEAKER) (test nkgt=738) 29.5 % 40.1-51.0 MEAN CORPUSCULAR VOLUME (BEAKER) (test vyvb=066) 83.8 fL 79.0-92.2 MEAN CORPUSCULAR HEMOGLOBIN (BEAKER) (test bsni=911) 26.7 pg 25.7-32.2 MEAN CORPUSCULAR HEMOGLOBIN CONC (BEAKER) (test pacp=955) 31.9 GM/DL 32.3-36.5 RED CELL DISTRIBUTION WIDTH (BEAKER) (test ntgp=084) 15.0 % 11.6-14.4 PLATELET COUNT (BEAKER) (test zgqr=781) 130 K/CU MM 150-450 MEAN PLATELET VOLUME (BEAKER) (test fuam=551) 11.5 fL 9.4-12.4 NUCLEATED RED BLOOD CELLS (BEAKER) (test nscg=462) 0 /100 WBC 0-0 [id number] 22:55:00* Test Item Value Reference Range Comments MAGNESIUM (BEAKER) (test vqdm=496) 2.2 mg/dL 1.6-2.6 BASIC METABOLIC [id number] 22:55:00* Test Item Value Reference Range Comments SODIUM (BEAKER) (test wlbx=375) 142 meq/L 136-145 POTASSIUM (BEAKER) (test zvec=523) 3.8 meq/L 3.5-5.1 CHLORIDE (BEAKER) (test aqxs=610) 109 meq/L 98-107 CO2 (BEAKER) (test umfh=552) 26 meq/L 22-29 BLOOD UREA NITROGEN (BEAKER) (test sajd=251) 11 mg/dL 7-21 CREATININE (BEAKER) (test gjsa=472) 0.79 mg/dL 0.57-1.25 GLUCOSE RANDOM (BEAKER) (test nwrs=589) 136 mg/dL 70-105 CALCIUM (BEAKER) (test unnm=047) 8.9 mg/dL 8.4-10.2 EGFR (BEAKER) (test bqqv=0942) 98 mL/min/1.73 sq m ESTIMATED GFR IS NOT ACCURATE CREATININE CLEARANCE IN PREDICTING GLOMERULAR FILTRATION RATE. ESTIMATED GFR IS NOT APPLICABLE FOR DIALYSIS PATIENTS. BLOOD GAS, [id number] 22:32:00* Test Item Value Reference Range Comments PH ARTERIAL (BEAKER) (test wceq=608) 7.43 7.35-7.45 PCO2 ARTERIAL (BEAKER) (test yxsn=236) 47 mmHg 35-45 PO2 ARTERIAL (BEAKER) (test fshw=817) 87 mmHg 80-90 O2 SATURATION ARTERIAL (BEAKER) (test sujn=286) 96.8 % 96.0-97.0 HCO3 ARTERIAL (BEAKER) (test uekw=134) 30 mmol/L 21-29 BASE EXCESS ARTERIAL (BEAKER) (test lnwk=660) 4.8 mmol/L -2.0-3.0 PATIENT TEMPERATURE (BEAKER) (test voxn=7405) 37.0 C FIO2 (BEAKER) (test oywp=6811) 60.0 % POCT-GLUCOSE [id number] 22:17:00* Test Item Value Reference Range Comments POC-GLUCOSE METER (BEAKER) (test wxgk=4244) 157 mg/dL 70-110 TESTED AT [place] [id number] [facility] [address] POCT-GLUCOSE [id number] 18:33:00* Test Item Value Reference Range Comments POC-GLUCOSE METER (BEAKER) (test ukfj=1271) 204 mg/dL 70-110 TESTED AT [place] [id number] [facility] [address] GLUCOSE-STAT [id number] 17:27:00* Test Item Value Reference Range Comments GLUCOSE RANDOM (BEAKER) (test eetr=632) 215 mg/dL 70-110 HGB/HCT (H&H) - STAT [id number] 17:27:00* Test Item Value Reference Range Comments HEMOGLOBIN (BEAKER) (test lolj=898) 9.7 g/dL 13.0-16.8 HEMATOCRIT (BEAKER) (test cjux=302) 29.0 % 40.0-50.0 BLOOD GAS, [id number] 17:27:00* Test Item Value Reference Range Comments PH ARTERIAL (BEAKER) (test vuit=469) 7.40 7.35-7.45 PCO2 ARTERIAL (BEAKER) (test pjmq=489) 44 mmHg 35-45 PO2 ARTERIAL (BEAKER) (test ivko=567) 86 mmHg 80-90 O2 SATURATION ARTERIAL (BEAKER) (test yugt=862) 96.3 % 96.0-97.0 HCO3 ARTERIAL (BEAKER) (test roqf=317) 27 mmol/L 21-29 BASE EXCESS ARTERIAL (BEAKER) (test xyvo=521) 1.7 mmol/L -2.0-3.0 PATIENT TEMPERATURE (BEAKER) (test wzfi=8529) 37.5 C FIO2 (BEAKER) (test eudu=1404) 70.0 % SODIUM NA-STAT [id number] 17:26:00* Test Item Value Reference Range Comments SODIUM (BEAKER) (test rtji=332) 141 meq/L 135-148 POTASSIUM-STAT [id number] 17:26:00* Test Item Value Reference Range Comments POTASSIUM (BEAKER) (test ozqm=677) 3.6 meq/L 3.6-5.5 POCT-GLUCOSE [id number] 17:19:00* Test Item Value Reference Range Comments POC-GLUCOSE METER (BEAKER) (test bksx=0906) 133 mg/dL 70-110 TESTED AT [place] [id number] [facility] [address] POCT-GLUCOSE [id number] 11:17:00* Test Item Value Reference Range Comments POC-GLUCOSE METER (BEAKER) (test jqop=3493) 165 mg/dL 70-110 TESTED AT [place] [id number] [facility] [address] [id number] 10:41:00* Test Item Value Reference Range Comments POTASSIUM (BEAKER) (test qjxc=630) 3.5 meq/L 3.5-5.1 Check Serum Magnesium level 2 hours after IV magnesium replacement.Every 8 hours PRN for Creatinine greater than or equal to 2 mg/dL.[id number] 10:41:00 * Test Item Value Reference Range Comments MAGNESIUM (BEAKER) (test jucc=554) 1.8 mg/dL 1.6-2.6 Check Serum Magnesium level 2 hours after IV magnesium replacement.Every 8 hours PRN for Creatinine greater than or equal to 2 mg/dL.POCT-GLUCOSE [id number] 07:54:00* Test Item Value Reference Range Comments POC-GLUCOSE METER (BEAKER) (test wiia=7707) 187 mg/dL 70-[address] [facility] [address] [facility] [address] LACTIC ACID, ARTERIAL, WHOLE [id number] 06:44:00* Test Item Value Reference Range Comments LACTATE BLOOD ARTERIAL (2) (BEAKER) (test hfuw=0354) 1.9 mmol/L 0.5-2.2 BLOOD GAS, [id number] 06:35:00* Test Item Value Reference Range Comments PH ARTERIAL (BEAKER) (test wsrd=652) 7.40 7.35-7.45 PCO2 ARTERIAL (BEAKER) (test wdxd=283) 45 mmHg 35-45 PO2 ARTERIAL (BEAKER) (test sscx=559) 53 mmHg 80-90 O2 SATURATION ARTERIAL (BEAKER) (test zkys=906) 86.1 % 96.0-97.0 HCO3 ARTERIAL (BEAKER) (test npps=873) 27 mmol/L 21-29 BASE EXCESS ARTERIAL (BEAKER) (test hpjf=031) 1.8 mmol/L -2.0-3.0 PATIENT TEMPERATURE (BEAKER) (test pwmb=7346) 37.4 C FIO2 (BEAKER) (test yhis=7701) 40.0 % GLUCOSE-STAT [id number] 06:35:00* Test Item Value Reference Range Comments GLUCOSE RANDOM (BEAKER) (test wphi=768) 144 mg/dL 70-110 POTASSIUM-STAT [id number] 06:35:00* Test Item Value Reference Range Comments POTASSIUM (BEAKER) (test mdwe=825) 3.3 meq/L 3.6-5.5 HGB/HCT (H&H) - STAT [id number] 06:35:00* Test Item Value Reference Range Comments HEMOGLOBIN (BEAKER) (test fboj=635) 10.4 g/dL 13.0-16.8 HEMATOCRIT (BEAKER) (test ridr=647) 31.0 % 40.0-50.0 SODIUM NA-STAT [id number] 06:34:00* Test Item Value Reference Range Comments SODIUM (BEAKER) (test ulam=694) 142 meq/L 135-148 TROPONIN [id number] 06:05:00* Test Item Value Reference Range Comments TROPONIN I (BEAKER) (test uwfb=699) 7.87 ng/mL 0.00-0.03 Troponin I (TnI) levels must be interpreted in the context of the presenting sym ptoms and the clinical findings. Elevated TnI levels indicate myocardial damage, but are not specific for ischemic heart disease. Elevated TnI levels are seen in patients with other cardiac conditions (including myocarditis and congestive h eart failure), and slight TnI elevations occur in patients with other conditions , including sepsis, renal failure, acidosis, acute neurological disease, and per sistent tachyarrhythmia.[id number] 06:04:00* Test Item Value Reference Range Comments PHOSPHORUS (BEAKER) (test nfqz=935) 1.0 mg/dL 2.3-4.7 PROTHROMBIN TIME/[id number] 05:58:00* Test Item Value Reference Range Comments PROTIME (BEAKER) (test wvjq=322) 14.6 seconds 11.7-14.7 INR (BEAKER) (test yjwd=701) 1.1 <=5.9 RECOMMENDED COUMADIN/WARFARIN INR THERAPY RANGESSTANDARD DOSE: 2.0 - 3.0 Inclu nilesh: PROPHYLAXIS for venous thrombosis, systemic embolization; TREATMENT for bailey ous thrombosis and/or pulmonary embolus.HIGH RISK: Target INR is 2.5-3.5 for pat ients with mechanical heart valves.[id number] 05:55:00* Test Item Value Reference Range Comments MAGNESIUM (BEAKER) (test guyc=514) 1.6 mg/dL 1.6-2.6 BASIC METABOLIC [id number] 05:55:00* Test Item Value Reference Range Comments SODIUM (BEAKER) (test mglg=665) 146 meq/L 136-145 POTASSIUM (BEAKER) (test fjnx=981) 3.7 meq/L 3.5-5.1 CHLORIDE (BEAKER) (test mrfx=680) 114 meq/L 98-107 CO2 (BEAKER) (test nrli=168) 25 meq/L 22-29 BLOOD UREA NITROGEN (BEAKER) (test alek=399) 9 mg/dL 7-21 CREATININE (BEAKER) (test gysa=733) 0.76 mg/dL 0.57-1.25 GLUCOSE RANDOM (BEAKER) (test nkne=529) 157 mg/dL 70-105 CALCIUM (BEAKER) (test xlly=655) 8.8 mg/dL 8.4-10.2 EGFR (BEAKER) (test weuf=7275) 102 mL/min/1.73 sq m ESTIMATED GFR IS NOT ACCURATE CREATININE CLEARANCE IN PREDICTING GLOMERULAR FILTRATION RATE. ESTIMATED GFR IS NOT APPLICABLE FOR DIALYSIS PATIENTS. LACTIC ACID, ARTERIAL, WHOLE [id number] 05:46:00* Test Item Value Reference Range Comments LACTATE BLOOD ARTERIAL (2) (BEAKER) (test htmc=3593) 2.9 mmol/L 0.5-2.2 CBC (HEMOGRAM ONLY)2018-08-05 05:32:00* Test Item Value Reference Range Comments WHITE BLOOD CELL COUNT (BEAKER) (test obxw=525) 11.3 K/ L 3.5-10.5 RED BLOOD CELL COUNT (BEAKER) (test yatc=705) 3.49 M/ L 4.63-6.08 HEMOGLOBIN (BEAKER) (test lsfn=918) 9.3 GM/DL 13.7-17.5 HEMATOCRIT (BEAKER) (test utpq=854) 28.8 % 40.1-51.0 MEAN CORPUSCULAR VOLUME (BEAKER) (test tdnv=166) 82.5 fL 79.0-92.2 MEAN CORPUSCULAR HEMOGLOBIN (BEAKER) (test difd=307) 26.6 pg 25.7-32.2 MEAN CORPUSCULAR HEMOGLOBIN CONC (BEAKER) (test jlkv=532) 32.3 GM/DL 32.3-36.5 RED CELL DISTRIBUTION WIDTH (BEAKER) (test djxx=476) 14.6 % 11.6-14.4 PLATELET COUNT (BEAKER) (test ecym=885) 141 K/CU MM 150-450 MEAN PLATELET VOLUME (BEAKER) (test ankm=634) 11.4 fL 9.4-12.4 NUCLEATED RED BLOOD CELLS (BEAKER) (test cvjl=809) 0 /100 WBC 0-0 BLOOD GAS, [id number] 04:59:00* Test Item Value Reference Range Comments PH ARTERIAL (BEAKER) (test yvqi=102) 7.43 7.35-7.45 PCO2 ARTERIAL (BEAKER) (test hpld=439) 39 mmHg 35-45 PO2 ARTERIAL (BEAKER) (test aixc=112) 79 mmHg 80-90 O2 SATURATION ARTERIAL (BEAKER) (test grht=312) 95.8 % 96.0-97.0 HCO3 ARTERIAL (BEAKER) (test wpel=001) 25 mmol/L 21-29 BASE EXCESS ARTERIAL (BEAKER) (test huqs=363) 0.8 mmol/L -2.0-3.0 PATIENT TEMPERATURE (BEAKER) (test geyu=4356) 37.4 C FIO2 (BEAKER) (test xcjr=1570) 40.0 % GLUCOSE-STAT [id number] 04:59:00* Test Item Value Reference Range Comments GLUCOSE RANDOM (BEAKER) (test pgcr=432) 146 mg/dL 70-110 HGB/HCT (H&H) - STAT [id number] 04:59:00* Test Item Value Reference Range Comments HEMOGLOBIN (BEAKER) (test ehwy=053) 9.8 g/dL 13.0-16.8 HEMATOCRIT (BEAKER) (test iojm=365) 29.0 % 40.0-50.0 SODIUM NA-STAT [id number] 04:53:00* Test Item Value Reference Range Comments SODIUM (BEAKER) (test ajnf=513) 142 meq/L 135-148 POTASSIUM-STAT [id number] 04:53:00* Test Item Value Reference Range Comments POTASSIUM (BEAKER) (test whxr=174) 3.5 meq/L 3.6-5.5 BLOOD GAS, [id number] 02:15:00* Test Item Value Reference Range Comments PH ARTERIAL (BEAKER) (test jaeq=595) 7.40 7.35-7.45 PCO2 ARTERIAL (BEAKER) (test lgqo=770) 43 mmHg 35-45 PO2 ARTERIAL (BEAKER) (test ocxx=643) 75 mmHg 80-90 O2 SATURATION ARTERIAL (BEAKER) (test rltf=966) 94.6 % 96.0-97.0 HCO3 ARTERIAL (BEAKER) (test ygan=763) 26 mmol/L 21-29 BASE EXCESS ARTERIAL (BEAKER) (test cwub=377) 1.1 mmol/L -2.0-3.0 PATIENT TEMPERATURE (BEAKER) (test sbzb=1834) 37.4 C FIO2 (BEAKER) (test pjea=6600) 40.0 % GLUCOSE-STAT [id number] 02:15:00* Test Item Value Reference Range Comments GLUCOSE RANDOM (BEAKER) (test wpfj=374) 179 mg/dL 70-110 HGB/HCT (H&H) - STAT [id number] 02:15:00* Test Item Value Reference Range Comments HEMOGLOBIN (BEAKER) (test aezm=709) 9.6 g/dL 13.0-16.8 HEMATOCRIT (BEAKER) (test ttvh=760) 28.0 % 40.0-50.0 POTASSIUM-STAT [id number] 02:10:00* Test Item Value Reference Range Comments POTASSIUM (BEAKER) (test ahch=328) 3.5 meq/L 3.6-5.5 RAD, CHEST, 1 VIEW, NON [id number] 01:34:00Reason for exam:->hypoxiaShould this be performed at the bedside?->YesFINAL REPORT Chest one view. Clinical history: hypoxia Comparison: Chest radiograph 08/04/18 Technique: A single frontal view of the chest was obtained. Findings:Support devices are in satisfactory position.The cardiomediastinal contours are stable. There is elevation of the right hemidiaphragm. There are persistent bilateral congestive changes. There are small bilateral pleural effusions. There is a retrocardiac opacity which may represent atelectasis and/or pneumonia. There is no pneumothorax. Signed: Nimo Hill Verified Date/Time: 08/05/2018 01:34:11 Reading Location: [address] Body Reading Room ONIN [id number] 00:14:00* Test Item Value Reference Range Comments TROPONIN I (BEAKER) (test vbfx=185) 8.52 ng/mL 0.00-0.03 Troponin I (TnI) levels must be interpreted in the context of the presenting sym ptoms and the clinical findings. Elevated TnI levels indicate myocardial damage, but are not specific for ischemic heart disease. Elevated TnI levels are seen in patients with other cardiac conditions (including myocarditis and congestive h eart failure), and slight TnI elevations occur in patients with other conditions , including sepsis, renal failure, acidosis, acute neurological disease, and per sistent tachyarrhythmia.LACTIC ACID, ARTERIAL, WHOLE [id number] 23:53:00* Test Item Value Reference Range Comments LACTATE BLOOD ARTERIAL (2) (BEAKER) (test stkx=7392) 5.2 mmol/L 0.5-2.2 [id number] 23:50:00* Test Item Value Reference Range Comments FIBRINOGEN LEVEL (BEAKER) (test lytd=668) 306 mg/dl 225-434 [id number] 23:50:00* Test Item Value Reference Range Comments PARTIAL THROMBOPLASTIN TIME (BEAKER) (test febo=915) 37.7 seconds 22.5-36.0 PROTHROMBIN [id number] 23:49:00* Test Item Value Reference Range Comments PROTIME (BEAKER) (test lkol=528) 14.6 seconds 11.7-14.7 INR (BEAKER) (test dctq=311) 1.1 <=5.9 RECOMMENDED COUMADIN/WARFARIN INR THERAPY RANGESSTANDARD DOSE: 2.0 - 3.0 Inclu nilesh: PROPHYLAXIS for venous thrombosis, systemic embolization; TREATMENT for bailey ous thrombosis and/or pulmonary embolus.HIGH RISK: Target INR is 2.5-3.5 for pat ients with mechanical heart valves.SODIUM NA-STAT [id number] 23:43:00* Test Item Value Reference Range Comments SODIUM (BEAKER) (test esgy=528) 146 meq/L 135-148 POTASSIUM-STAT [id number] 23:43:00* Test Item Value Reference Range Comments POTASSIUM (BEAKER) (test bjmz=219) 3.9 meq/L 3.6-5.5 BLOOD GAS, [id number] 23:43:00* Test Item Value Reference Range Comments PH ARTERIAL (BEAKER) (test olht=839) 7.33 7.35-7.45 PCO2 ARTERIAL (BEAKER) (test zsue=771) 45 mmHg 35-45 PO2 ARTERIAL (BEAKER) (test caan=142) 68 mmHg 80-90 O2 SATURATION ARTERIAL (BEAKER) (test ngho=882) 91.5 % 96.0-97.0 HCO3 ARTERIAL (BEAKER) (test xckk=579) 23 mmol/L 21-29 BASE EXCESS ARTERIAL (BEAKER) (test othx=549) -2.5 mmol/L -2.0-3.0 PATIENT TEMPERATURE (BEAKER) (test ngoq=3292) 37.6 C FIO2 (BEAKER) (test rizi=7486) 40.0 % GLUCOSE-STAT [id number] 23:43:00* Test Item Value Reference Range Comments GLUCOSE RANDOM (BEAKER) (test zkyr=838) 177 mg/dL 70-110 HGB/HCT (H&H) - STAT [id number] 23:43:00* Test Item Value Reference Range Comments HEMOGLOBIN (BEAKER) (test slhu=271) 10.3 g/dL 13.0-16.8 HEMATOCRIT (BEAKER) (test xjpc=358) 30.0 % 40.0-50.0 BLOOD GAS, [id number] 21:30:00* Test Item Value Reference Range Comments PH ARTERIAL (BEAKER) (test dovv=296) 7.43 7.35-7.45 PCO2 ARTERIAL (BEAKER) (test ohns=190) 37 mmHg 35-45 PO2 ARTERIAL (BEAKER) (test jzta=574) 99 mmHg 80-90 O2 SATURATION ARTERIAL (BEAKER) (test aefd=410) 97.8 % 96.0-97.0 HCO3 ARTERIAL (BEAKER) (test ncjh=335) 24 mmol/L 21-29 BASE EXCESS ARTERIAL (BEAKER) (test wzsf=984) -0.2 mmol/L -2.0-3.0 PATIENT TEMPERATURE (BEAKER) (test uycl=4035) 36.6 C FIO2 (BEAKER) (test lnzz=8891) 60.0 % GLUCOSE-STAT [id number] 21:30:00* Test Item Value Reference Range Comments GLUCOSE RANDOM (BEAKER) (test tbel=960) 208 mg/dL 70-110 HGB/HCT (H&H) - STAT [id number] 21:30:00* Test Item Value Reference Range Comments HEMOGLOBIN (BEAKER) (test efih=473) 9.7 g/dL 13.0-16.8 HEMATOCRIT (BEAKER) (test riwe=683) 29.0 % 40.0-50.0 SODIUM NA-STAT [id number] 21:28:00* Test Item Value Reference Range Comments SODIUM (BEAKER) (test wrbb=815) 146 meq/L 135-148 POTASSIUM-STAT [id number] 21:28:00* Test Item Value Reference Range Comments POTASSIUM (BEAKER) (test vjjw=061) 3.9 meq/L 3.6-5.5 RAD, CHEST, 1 VIEW, NON [id number] 21:24:00Reason for exam:->Status post CV Surgery post op day 0Should this be performed at the bedside?->YesFINAL REPORT TECHNIQUE: Frontal view of the chest. INDICATION: 67-year-old woman after surgery. COMPARISON: Chest radiograph 07/10/2018. FINDINGS: LINES/TUBES: The endotracheal tube terminates approximately 4 cm above the mohit. Right internal jugular central venous catheter projects over the ex pected region of the mid superior vena cava. Right chest tube in place. LUNGS: L ower lung volumes, which accentuate the previous silhouette and pulmonary vascul ature. Patchy right suprahilar and retrocardiac airspace opacities. Linear subse gmental atelectasis in the left lower lung zone. PLEURA: No pneumothorax or sign ificant pleural effusion. HEART AND MEDIASTINUM: The cardiomediastinal silhouett e is prominent, which is likely in part due to AP technique and low lung volumes . Prosthetic cardiac valve. SOFT TISSUES AND BONES: Unremarkable. IMPRESSION:Li millie/tubes as above. Airspace opacities in the right suprahilar and retrocardiac regions may represent atelectasis, however aspiration cannot be excluded. Signed : Gerson Hernandez MDReport Verified Date/Time: 08/04/2018 21:24:37 Reading Loca tion: [facility] B1 C013W Consult Reading Room ONIN [id number] 21:06:00* Test Item Value Reference Range Comments TROPONIN I (BEAKER) (test oloj=605) 8.04 ng/mL 0.00-0.03 Troponin I (TnI) levels must be interpreted in the context of the presenting sym ptoms and the clinical findings. Elevated TnI levels indicate myocardial damage, but are not specific for ischemic heart disease. Elevated TnI levels are seen in patients with other cardiac conditions (including myocarditis and congestive h eart failure), and slight TnI elevations occur in patients with other conditions , including sepsis, renal failure, acidosis, acute neurological disease, and per sistent tachyarrhythmia.[id number] 20:51:00* Test Item Value Reference Range Comments PHOSPHORUS (BEAKER) (test hgjk=357) 2.8 mg/dL 2.3-4.7 [id number] 20:51:00* Test Item Value Reference Range Comments MAGNESIUM (BEAKER) (test jdpw=600) 2.1 mg/dL 1.6-2.6 BASIC METABOLIC [id number] 20:51:00* Test Item Value Reference Range Comments SODIUM (BEAKER) (test cubb=007) 147 meq/L 136-145 POTASSIUM (BEAKER) (test luxe=502) 4.2 meq/L 3.5-5.1 CHLORIDE (BEAKER) (test bakj=516) 115 meq/L 98-107 CO2 (BEAKER) (test yjnm=593) 23 meq/L 22-29 BLOOD UREA NITROGEN (BEAKER) (test ymye=758) 9 mg/dL 7-21 CREATININE (BEAKER) (test lvgv=226) 0.87 mg/dL 0.57-1.25 GLUCOSE RANDOM (BEAKER) (test rech=469) 222 mg/dL 70-105 CALCIUM (BEAKER) (test ulpn=585) 8.7 mg/dL 8.4-10.2 EGFR (BEAKER) (test yudc=5973) 87 mL/min/1.73 sq m ESTIMATED GFR IS NOT ACCURATE CREATININE CLEARANCE IN PREDICTING GLOMERULAR FILTRATION RATE. ESTIMATED GFR IS NOT APPLICABLE FOR DIALYSIS PATIENTS. LACTIC ACID, ARTERIAL, WHOLE [id number] 20:51:00* Test Item Value Reference Range Comments LACTATE BLOOD ARTERIAL (2) (BEAKER) (test mbei=7188) 7.0 mmol/L 0.5-2.2 [id number] 20:45:00* Test Item Value Reference Range Comments FIBRINOGEN LEVEL (BEAKER) (test avon=185) 290 mg/dl 225-434 [id number] 20:45:00* Test Item Value Reference Range Comments PARTIAL THROMBOPLASTIN TIME (BEAKER) (test limw=472) 33.7 seconds 22.5-36.0 PROTHROMBIN TIME/[id number] 20:44:00* Test Item Value Reference Range Comments PROTIME (BEAKER) (test ccaw=848) 15.4 seconds 11.7-14.7 INR (BEAKER) (test zojg=989) 1.2 <=5.9 RECOMMENDED COUMADIN/WARFARIN INR THERAPY RANGESSTANDARD DOSE: 2.0 - 3.0 Inclu nilesh: PROPHYLAXIS for venous thrombosis, systemic embolization; TREATMENT for bailey ous thrombosis and/or pulmonary embolus.HIGH RISK: Target INR is 2.5-3.5 for pat ients with mechanical heart valves.CBC W/PLT COUNT & AUTO [id number] 20:33:00* Test Item Value Reference Range Comments WHITE BLOOD CELL COUNT (BEAKER) (test lfmc=705) 10.8 K/ L 3.5-10.5 RED BLOOD CELL COUNT (BEAKER) (test mrzl=550) 3.67 M/ L 4.63-6.08 HEMOGLOBIN (BEAKER) (test jxcb=248) 9.8 GM/DL 13.7-17.5 HEMATOCRIT (BEAKER) (test yeaw=266) 31.2 % 40.1-51.0 MEAN CORPUSCULAR VOLUME (BEAKER) (test nell=434) 85.0 fL 79.0-92.2 MEAN CORPUSCULAR HEMOGLOBIN (BEAKER) (test fpbk=956) 26.7 pg 25.7-32.2 MEAN CORPUSCULAR HEMOGLOBIN CONC (BEAKER) (test zsfg=261) 31.4 GM/DL 32.3-36.5 RED CELL DISTRIBUTION WIDTH (BEAKER) (test aymh=613) 14.6 % 11.6-14.4 PLATELET COUNT (BEAKER) (test dcgo=518) 131 K/CU MM 150-450 MEAN PLATELET VOLUME (BEAKER) (test eoni=713) 10.2 fL 9.4-12.4 NUCLEATED RED BLOOD CELLS (BEAKER) (test zrnc=885) 0 /100 WBC 0-0 NEUTROPHILS RELATIVE PERCENT (BEAKER) (test vamm=770) 87 % LYMPHOCYTES RELATIVE PERCENT (BEAKER) (test rfsp=040) 4 % MONOCYTES RELATIVE PERCENT (BEAKER) (test fsuq=404) 8 % EOSINOPHILS RELATIVE PERCENT (BEAKER) (test iwqm=599) 0 % BASOPHILS RELATIVE PERCENT (BEAKER) (test woln=306) 0 % NEUTROPHILS ABSOLUTE COUNT (BEAKER) (test ofhe=330) 9.37 K/ L 1.78-5.38 LYMPHOCYTES ABSOLUTE COUNT (BEAKER) (test rwqo=909) 0.46 K/ L 1.32-3.57 MONOCYTES ABSOLUTE COUNT (BEAKER) (test xwkj=374) 0.87 K/ L 0.30-0.82 EOSINOPHILS ABSOLUTE COUNT (BEAKER) (test dcay=236) 0.00 K/ L 0.04-0.54 BASOPHILS ABSOLUTE COUNT (BEAKER) (test iphu=701) 0.02 K/ L 0.01-0.08 IMMATURE GRANULOCYTES-RELATIVE PERCENT (BEAKER) (test hgfd=2020) 0 % 0-1 BLOOD GAS, [id number] 20:22:00* Test Item Value Reference Range Comments PH ARTERIAL (BEAKER) (test vcey=596) 7.26 7.35-7.45 PCO2 ARTERIAL (BEAKER) (test dvda=847) 49 mmHg 35-45 PO2 ARTERIAL (BEAKER) (test cvpv=228) 79 mmHg 80-90 O2 SATURATION ARTERIAL (BEAKER) (test lpjd=524) 93.9 % 96.0-97.0 HCO3 ARTERIAL (BEAKER) (test cmut=344) 22 mmol/L 21-29 BASE EXCESS ARTERIAL (BEAKER) (test ukhm=793) -5.3 mmol/L -2.0-3.0 PATIENT TEMPERATURE (BEAKER) (test vate=0817) 36.8 C FIO2 (BEAKER) (test xlje=4275) 60.0 % GLUCOSE-STAT [id number] 20:22:00* Test Item Value Reference Range Comments GLUCOSE RANDOM (BEAKER) (test sixr=858) 214 mg/dL 70-110 HGB/HCT (H&H) - STAT [id number] 20:22:00* Test Item Value Reference Range Comments HEMOGLOBIN (BEAKER) (test oxcp=840) 10.1 g/dL 13.0-16.8 HEMATOCRIT (BEAKER) (test hbdu=139) 30.0 % 40.0-50.0 CALCIUM, [id number] 20:22:00* Test Item Value Reference Range Comments CALCIUM IONIZED (BEAKER) (test pvei=445) 1.17 mmol/L 1.12-1.27 PH, BLOOD (BEAKER) (test okdm=4733) 7.26 SODIUM NA-STAT [id number] 20:21:00* Test Item Value Reference Range Comments SODIUM (BEAKER) (test djjc=427) 145 meq/L 135-148 POTASSIUM-STAT [id number] 20:21:00* Test Item Value Reference Range Comments POTASSIUM (BEAKER) (test meyf=494) 4.1 meq/L 3.6-5.5 OXYGEN SATURATION, [id number] 20:21:00* Test Item Value Reference Range Comments O2 SATURATION (MEASURED) (BEAKER) (test alef=8550) 62.4 % [id number] 18:32:00* Test Item Value Reference Range Comments FIBRINOGEN LEVEL (BEAKER) (test ijtp=369) 182 mg/dl 225-434 [id number] 18:32:00* Test Item Value Reference Range Comments PARTIAL THROMBOPLASTIN TIME (BEAKER) (test xtqv=530) 35.4 seconds 22.5-36.0 PROTHROMBIN TIME/[id number] 18:31:00* Test Item Value Reference Range Comments PROTIME (BEAKER) (test jdrh=244) 18.5 seconds 11.7-14.7 INR (BEAKER) (test oart=879) 1.5 <=5.9 RECOMMENDED COUMADIN/WARFARIN INR THERAPY RANGESSTANDARD DOSE: 2.0 - 3.0 Inclu nilesh: PROPHYLAXIS for venous thrombosis, systemic embolization; TREATMENT for bailey ous thrombosis and/or pulmonary embolus.HIGH RISK: Target INR is 2.5-3.5 for pat ients with mechanical heart valves.[id number] 18:28:00* Test Item Value Reference Range Comments MAGNESIUM (BEAKER) (test qwso=051) 2.0 mg/dL 1.6-2.6 Specimen slightly hemolyzed [id number] 18:28:00* Test Item Value Reference Range Comments PHOSPHORUS (BEAKER) (test idvq=301) 4.0 mg/dL 2.3-4.7 Specimen slightly hemolyzed BASIC METABOLIC [id number] 18:28:00* Test Item Value Reference Range Comments SODIUM (BEAKER) (test vkam=638) 150 meq/L 136-145 POTASSIUM (BEAKER) (test hvas=692) 4.2 meq/L 3.5-5.1 Specimen slightly hemolyzed CHLORIDE (BEAKER) (test rkns=951) 118 meq/L 98-107 CO2 (BEAKER) (test cnbh=073) 21 meq/L 22-29 BLOOD UREA NITROGEN (BEAKER) (test yibe=890) 10 mg/dL 7-21 CREATININE (BEAKER) (test qrih=158) 0.83 mg/dL 0.57-1.25 Specimen slightly hemolyzed GLUCOSE RANDOM (BEAKER) (test qxdu=677) 203 mg/dL 70-105 CALCIUM (BEAKER) (test yqgt=558) 8.8 mg/dL 8.4-10.2 EGFR (BEAKER) (test dfxr=7694) 92 mL/min/1.73 sq m ESTIMATED GFR IS NOT ACCURATE CREATININE CLEARANCE IN PREDICTING GLOMERULAR FILTRATION RATE. ESTIMATED GFR IS NOT APPLICABLE FOR DIALYSIS PATIENTS. LACTIC ACID, ARTERIAL, WHOLE [id number] 18:25:00* Test Item Value Reference Range Comments LACTATE BLOOD ARTERIAL (2) (BEAKER) (test tsem=2793) 8.6 mmol/L 0.5-2.2 CBC W/PLT COUNT & AUTO [id number] 18:11:00* Test Item Value Reference Range Comments WHITE BLOOD CELL COUNT (BEAKER) (test qyzi=083) 11.3 K/ L 3.5-10.5 RED BLOOD CELL COUNT (BEAKER) (test aoss=395) 3.91 M/ L 4.63-6.08 HEMOGLOBIN (BEAKER) (test rvmo=677) 10.4 GM/DL 13.7-17.5 HEMATOCRIT (BEAKER) (test bhhq=636) 33.2 % 40.1-51.0 MEAN CORPUSCULAR VOLUME (BEAKER) (test kasl=282) 84.9 fL 79.0-92.2 MEAN CORPUSCULAR HEMOGLOBIN (BEAKER) (test erfe=632) 26.6 pg 25.7-32.2 MEAN CORPUSCULAR HEMOGLOBIN CONC (BEAKER) (test dfof=140) 31.3 GM/DL 32.3-36.5 RED CELL DISTRIBUTION WIDTH (BEAKER) (test kphg=145) 14.6 % 11.6-14.4 PLATELET COUNT (BEAKER) (test okrp=264) 82 K/CU MM 150-450 MEAN PLATELET VOLUME (BEAKER) (test tbgo=269) 10.7 fL 9.4-12.4 NUCLEATED RED BLOOD CELLS (BEAKER) (test hqjq=052) 0 /100 WBC 0-0 NEUTROPHILS RELATIVE PERCENT (BEAKER) (test hzoh=495) 82 % LYMPHOCYTES RELATIVE PERCENT (BEAKER) (test jcnr=443) 11 % MONOCYTES RELATIVE PERCENT (BEAKER) (test nxak=080) 6 % EOSINOPHILS RELATIVE PERCENT (BEAKER) (test sxqu=713) 0 % BASOPHILS RELATIVE PERCENT (BEAKER) (test xkul=302) 0 % NEUTROPHILS ABSOLUTE COUNT (BEAKER) (test kcyt=525) 9.22 K/ L 1.78-5.38 LYMPHOCYTES ABSOLUTE COUNT (BEAKER) (test vfng=208) 1.25 K/ L 1.32-3.57 MONOCYTES ABSOLUTE COUNT (BEAKER) (test gtin=675) 0.71 K/ L 0.30-0.82 EOSINOPHILS ABSOLUTE COUNT (BEAKER) (test ebhr=354) 0.01 K/ L 0.04-0.54 BASOPHILS ABSOLUTE COUNT (BEAKER) (test obhn=081) 0.01 K/ L 0.01-0.08 IMMATURE GRANULOCYTES-RELATIVE PERCENT (BEAKER) (test xljd=2416) 1 % 0-1 CALCIUM, [id number] 17:58:00* Test Item Value Reference Range Comments CALCIUM IONIZED (BEAKER) (test tnew=184) 1.16 mmol/L 1.12-1.27 PH, BLOOD (BEAKER) (test splx=0114) 7.29 OXYGEN SATURATION, [id number] 17:57:00* Test Item Value Reference Range Comments O2 SATURATION (MEASURED) (BEAKER) (test xpdh=7553) 69.9 % BLOOD GAS, [id number] 17:57:00* Test Item Value Reference Range Comments PH ARTERIAL (BEAKER) (test vqdn=958) 7.29 7.35-7.45 PCO2 ARTERIAL (BEAKER) (test wwib=513) 42 mmHg 35-45 PO2 ARTERIAL (BEAKER) (test ytvs=224) 65 mmHg 80-90 O2 SATURATION ARTERIAL (BEAKER) (test qxkn=364) 92.0 % 96.0-97.0 HCO3 ARTERIAL (BEAKER) (test vynu=340) 20 mmol/L 21-29 BASE EXCESS ARTERIAL (BEAKER) (test fnjk=278) -6.5 mmol/L -2.0-3.0 PATIENT TEMPERATURE (BEAKER) (test mxpu=4611) 35.7 C FIO2 (BEAKER) (test oosk=9435) 60.0 % CALCIUM, [id number] 16:19:00* Test Item Value Reference Range Comments CALCIUM IONIZED (BEAKER) (test wodz=950) 0.97 mmol/L 1.12-1.27 PH, BLOOD (BEAKER) (test tfdn=9122) 7.27 SODIUM NA-STAT [id number] 16:18:00* Test Item Value Reference Range Comments SODIUM (BEAKER) (test fwae=394) 145 meq/L 135-148 BLOOD GAS, [id number] 16:18:00* Test Item Value Reference Range Comments PH ARTERIAL (BEAKER) (test coox=046) 7.27 7.35-7.45 PCO2 ARTERIAL (BEAKER) (test afhg=334) 43 mmHg 35-45 PO2 ARTERIAL (BEAKER) (test erth=929) 307 mmHg 80-90 O2 SATURATION ARTERIAL (BEAKER) (test fadp=654) 99.6 % 96.0-97.0 HCO3 ARTERIAL (BEAKER) (test quer=458) 20 mmol/L 21-29 BASE EXCESS ARTERIAL (BEAKER) (test jqcu=144) -7.4 mmol/L -2.0-3.0 PATIENT TEMPERATURE (BEAKER) (test gvji=6805) 36.0 C FIO2 (BEAKER) (test iwaa=7656) 100.0 % POTASSIUM-STAT [id number] 16:18:00* Test Item Value Reference Range Comments POTASSIUM (BEAKER) (test pwpr=835) 3.4 meq/L 3.6-5.5 GLUCOSE-STAT [id number] 16:18:00* Test Item Value Reference Range Comments GLUCOSE RANDOM (BEAKER) (test vbab=951) 212 mg/dL 70-110 HGB/HCT (H&H) - STAT [id number] 16:18:00* Test Item Value Reference Range Comments HEMOGLOBIN (BEAKER) (test cpmv=349) 11.8 g/dL 13.0-16.8 HEMATOCRIT (BEAKER) (test ijpb=762) 35.0 % 40.0-50.0 THROMBOELASTOGRAPH (TEG)[id number] 16:15:00* Test Item Value Reference Range Comments TEG ACTIVATED CLOTTING TIME (BEAKER) (test ceaz=3982) 3.8 minutes 4.0-7.0 TEG FIBRINOGEN ACTIVITY (BEAKER) (test uuad=0754) 71.0 degrees 61.0-73.0 [address]T. AGGREGATION (BEAKER) (test jajj=0787) 64.5 MM 55.0-65.0 TGH ACTIVATED CLOTTING TIME (BEAKER) (test esvf=0456) 4.1 minutes 4.0-7.0 TGH FIBRINOGEN ACTIVITY (BEAKER) (test vxww=8877) 70.5 degrees 61.0-73.0 TGH PLT. AGGREGATION (BEAKER) (test adqe=0406) 61.6 MM 55.0-65.0 [id number] 16:08:00* Test Item Value Reference Range Comments ACTIVATED CLOTTING TIME (BEAKER) (test snal=606) 98 sec TESTED AT [place] [id number] [facility] [address] [id number] 16:08:00* Test Item Value Reference Range Comments ACTIVATED CLOTTING TIME (BEAKER) (test ougw=358) 510 sec TESTED AT [place] [id number] [facility] [address] [id number] 16:08:00* Test Item Value Reference Range Comments ACTIVATED CLOTTING TIME (BEAKER) (test skbx=643) 527 sec TESTED AT [place] [id number] 16:08:00* Test Item Value Reference Range Comments ACTIVATED CLOTTING TIME (BEAKER) (test krms=838) 637 sec TESTED AT [place] [address] [id number] 16:08:00* Test Item Value Reference Range Comments ACTIVATED CLOTTING TIME (BEAKER) (test tclo=709) 461 sec TESTED AT [place] [address] [id number] 16:08:00* Test Item Value Reference Range Comments ACTIVATED CLOTTING TIME (BEAKER) (test ysjk=568) 571 sec TESTED AT [place] [address] [id number] 16:08:00* Test Item Value Reference Range Comments ACTIVATED CLOTTING TIME (BEAKER) (test ulwg=073) 450 sec TESTED AT [place] [address] [id number] 16:08:00* Test Item Value Reference Range Comments ACTIVATED CLOTTING TIME (BEAKER) (test bfwv=870) 406 sec TESTED AT [place] [address] [id number] 16:08:00* Test Item Value Reference Range Comments ACTIVATED CLOTTING TIME (BEAKER) (test pkkj=285) 395 sec TESTED AT [place] [address] [id number] 16:02:00* Test Item Value Reference Range Comments FIBRINOGEN LEVEL (BEAKER) (test hnop=220) 151 mg/dl 225-434 PROTHROMBIN [id number] 15:57:00* Test Item Value Reference Range Comments PROTIME (BEAKER) (test mehz=591) 21.1 seconds 11.7-14.7 INR (BEAKER) (test ahme=944) 1.8 <=5.9 RECOMMENDED COUMADIN/WARFARIN INR THERAPY RANGESSTANDARD DOSE: 2.0 - 3.0 Inclu nilesh: PROPHYLAXIS for venous thrombosis, systemic embolization; TREATMENT for bailey ous thrombosis and/or pulmonary embolus.HIGH RISK: Target INR is 2.5-3.5 for pat ients with mechanical heart valves.[id number] 15:57:00* Test Item Value Reference Range Comments PARTIAL THROMBOPLASTIN TIME (BEAKER) (test ljut=570) 28.8 seconds 22.5-36.0 PLATELET [id number] 15:36:00* Test Item Value Reference Range Comments PLATELET COUNT (BEAKER) (test ejwn=281) 105 K/CU MM 150-450 SODIUM NA-STAT [id number] 15:34:00* Test Item Value Reference Range Comments SODIUM (BEAKER) (test hont=978) 142 meq/L 135-148 POTASSIUM-STAT [id number] 15:34:00* Test Item Value Reference Range Comments POTASSIUM (BEAKER) (test bjez=895) 3.8 meq/L 3.6-5.5 CALCIUM, [id number] 15:34:00* Test Item Value Reference Range Comments CALCIUM IONIZED (BEAKER) (test iiub=312) 0.96 mmol/L 1.12-1.27 PH, BLOOD (BEAKER) (test klcj=9632) 7.27 BLOOD GAS, [id number] 15:34:00* Test Item Value Reference Range Comments PH ARTERIAL (BEAKER) (test jquf=678) 7.27 7.35-7.45 PCO2 ARTERIAL (BEAKER) (test bpez=976) 44 mmHg 35-45 PO2 ARTERIAL (BEAKER) (test cjez=971) 118 mmHg 80-90 O2 SATURATION ARTERIAL (BEAKER) (test ykoz=537) 97.9 % 96.0-97.0 HCO3 ARTERIAL (BEAKER) (test pvaf=961) 20 mmol/L 21-29 BASE EXCESS ARTERIAL (BEAKER) (test nqhl=697) -6.7 mmol/L -2.0-3.0 PATIENT TEMPERATURE (BEAKER) (test rzsl=8844) 36.2 C FIO2 (BEAKER) (test elbm=0063) 100.0 % GLUCOSE-STAT [id number] 15:34:00* Test Item Value Reference Range Comments GLUCOSE RANDOM (BEAKER) (test tnlj=571) 248 mg/dL 70-110 HGB/HCT (H&H) - STAT [id number] 15:34:00* Test Item Value Reference Range Comments HEMOGLOBIN (BEAKER) (test cxln=076) 8.8 g/dL 13.0-16.8 HEMATOCRIT (BEAKER) (test dlwv=469) 26.0 % 40.0-50.0 SODIUM NA-STAT [id number] 14:27:00* Test Item Value Reference Range Comments SODIUM (BEAKER) (test rzej=752) 141 meq/L 135-148 POTASSIUM-STAT [id number] 14:27:00* Test Item Value Reference Range Comments POTASSIUM (BEAKER) (test mmyp=719) 5.4 meq/L 3.6-5.5 BLOOD GAS, [id number] 14:27:00* Test Item Value Reference Range Comments PH ARTERIAL (BEAKER) (test pfns=620) 7.37 7.35-7.45 PCO2 ARTERIAL (BEAKER) (test elwo=936) 41 mmHg 35-45 PO2 ARTERIAL (BEAKER) (test itzt=627) 380 mmHg 80-90 O2 SATURATION ARTERIAL (BEAKER) (test hxkg=526) 99.8 % 96.0-97.0 HCO3 ARTERIAL (BEAKER) (test ehjp=962) 23 mmol/L 21-29 BASE EXCESS ARTERIAL (BEAKER) (test tkfv=698) -2.2 mmol/L -2.0-3.0 PATIENT TEMPERATURE (BEAKER) (test pjsj=2589) 36.0 C FIO2 (BEAKER) (test aczw=8117) 75.0 % GLUCOSE-STAT [id number] 14:27:00* Test Item Value Reference Range Comments GLUCOSE RANDOM (BEAKER) (test wjqq=652) 201 mg/dL 70-110 HGB/HCT (H&H) - STAT [id number] 14:27:00* Test Item Value Reference Range Comments HEMOGLOBIN (BEAKER) (test ifcx=209) 10.0 g/dL 13.0-16.8 HEMATOCRIT (BEAKER) (test wdjd=764) 29.0 % 40.0-50.0 GLUCOSE-STAT [id number] 13:55:00* Test Item Value Reference Range Comments GLUCOSE RANDOM (BEAKER) (test bacu=455) 195 mg/dL 70-110 HGB/HCT (H&H) - STAT [id number] 13:55:00* Test Item Value Reference Range Comments HEMOGLOBIN (BEAKER) (test ojiq=179) 10.1 g/dL 13.0-16.8 HEMATOCRIT (BEAKER) (test yicd=439) 30.0 % 40.0-50.0 BLOOD GAS, [id number] 13:54:00* Test Item Value Reference Range Comments PH ARTERIAL (BEAKER) (test hjsu=148) 7.41 7.35-7.45 PCO2 ARTERIAL (BEAKER) (test vqqg=694) 35 mmHg 35-45 PO2 ARTERIAL (BEAKER) (test myto=440) 300 mmHg 80-90 O2 SATURATION ARTERIAL (BEAKER) (test yedm=613) 99.7 % 96.0-97.0 HCO3 ARTERIAL (BEAKER) (test xhag=403) 22 mmol/L 21-29 BASE EXCESS ARTERIAL (BEAKER) (test cost=318) -2.3 mmol/L -2.0-3.0 PATIENT TEMPERATURE (BEAKER) (test cato=0810) 35.3 C FIO2 (BEAKER) (test yvvr=6824) 65.0 % POTASSIUM-STAT [id number] 13:54:00* Test Item Value Reference Range Comments POTASSIUM (BEAKER) (test ksuv=471) 5.9 meq/L 3.6-5.5 SODIUM NA-STAT [id number] 13:53:00* Test Item Value Reference Range Comments SODIUM (BEAKER) (test bbko=251) 140 meq/L 135-148 BLOOD GAS, [id number] 13:33:00* Test Item Value Reference Range Comments PH ARTERIAL (BEAKER) (test ydtv=378) 7.41 7.35-7.45 PCO2 ARTERIAL (BEAKER) (test sjkc=470) 42 mmHg 35-45 PO2 ARTERIAL (BEAKER) (test jzty=737) 343 mmHg 80-90 O2 SATURATION ARTERIAL (BEAKER) (test eiwl=862) 99.8 % 96.0-97.0 HCO3 ARTERIAL (BEAKER) (test ngkr=818) 28 mmol/L 21-29 BASE EXCESS ARTERIAL (BEAKER) (test lutu=933) 1.5 mmol/L -2.0-3.0 PATIENT TEMPERATURE (BEAKER) (test rnfi=3304) 31.8 C FIO2 (BEAKER) (test dkdh=5997) 65.0 % GLUCOSE-STAT [id number] 13:33:00* Test Item Value Reference Range Comments GLUCOSE RANDOM (BEAKER) (test resw=427) 168 mg/dL 70-110 HGB/HCT (H&H) - STAT [id number] 13:33:00* Test Item Value Reference Range Comments HEMOGLOBIN (BEAKER) (test qafr=577) 9.4 g/dL 13.0-16.8 HEMATOCRIT (BEAKER) (test qeut=689) 28.0 % 40.0-50.0 SODIUM NA-STAT [id number] 13:30:00* Test Item Value Reference Range Comments SODIUM (BEAKER) (test gxfj=445) 144 meq/L 135-148 POTASSIUM-STAT [id number] 13:30:00* Test Item Value Reference Range Comments POTASSIUM (BEAKER) (test zgkg=475) 5.3 meq/L 3.6-5.5 SODIUM NA-STAT [id number] 12:51:00* Test Item Value Reference Range Comments SODIUM (BEAKER) (test fujz=175) 139 meq/L 135-148 BLOOD GAS, [id number] 12:51:00* Test Item Value Reference Range Comments PH ARTERIAL (BEAKER) (test ceyu=703) 7.36 7.35-7.45 PCO2 ARTERIAL (BEAKER) (test txfv=864) 37 mmHg 35-45 PO2 ARTERIAL (BEAKER) (test mclq=621) 350 mmHg 80-90 O2 SATURATION ARTERIAL (BEAKER) (test zlmy=870) 99.8 % 96.0-97.0 HCO3 ARTERIAL (BEAKER) (test ernt=086) 22 mmol/L 21-29 BASE EXCESS ARTERIAL (BEAKER) (test eofn=425) -4.7 mmol/L -2.0-3.0 PATIENT TEMPERATURE (BEAKER) (test kqsi=0771) 31.0 C FIO2 (BEAKER) (test mekh=0523) 65.0 % POTASSIUM-STAT [id number] 12:51:00* Test Item Value Reference Range Comments POTASSIUM (BEAKER) (test yfiw=847) 5.7 meq/L 3.6-5.5 GLUCOSE-STAT [id number] 12:51:00* Test Item Value Reference Range Comments GLUCOSE RANDOM (BEAKER) (test jtwc=506) 173 mg/dL 70-110 HGB/HCT (H&H) - STAT [id number] 12:51:00* Test Item Value Reference Range Comments HEMOGLOBIN (BEAKER) (test jffw=326) 9.7 g/dL 13.0-16.8 HEMATOCRIT (BEAKER) (test gozz=064) 29.0 % 40.0-50.0 POTASSIUM-STAT [id number] 12:31:00* Test Item Value Reference Range Comments POTASSIUM (BEAKER) (test pyjn=186) 7.1 meq/L 3.6-5.5 BLOOD GAS, [id number] 12:30:00* Test Item Value Reference Range Comments PH ARTERIAL (BEAKER) (test gdvf=401) 7.36 7.35-7.45 PCO2 ARTERIAL (BEAKER) (test yifg=077) 44 mmHg 35-45 PO2 ARTERIAL (BEAKER) (test dfzu=663) 324 mmHg 80-90 O2 SATURATION ARTERIAL (BEAKER) (test vwmp=272) 99.7 % 96.0-97.0 HCO3 ARTERIAL (BEAKER) (test efvr=085) 26 mmol/L 21-29 BASE EXCESS ARTERIAL (BEAKER) (test nclt=588) -1.3 mmol/L -2.0-3.0 PATIENT TEMPERATURE (BEAKER) (test bblm=6171) 31.0 C FIO2 (BEAKER) (test aiiw=1996) 65.0 % SODIUM NA-STAT [id number] 12:30:00* Test Item Value Reference Range Comments SODIUM (BEAKER) (test hmeo=722) 134 meq/L 135-148 GLUCOSE-STAT [id number] 12:30:00* Test Item Value Reference Range Comments GLUCOSE RANDOM (BEAKER) (test vntl=212) 200 mg/dL 70-110 HGB/HCT (H&H) - STAT [id number] 12:30:00* Test Item Value Reference Range Comments HEMOGLOBIN (BEAKER) (test tsnn=701) 9.1 g/dL 13.0-16.8 HEMATOCRIT (BEAKER) (test xwlc=119) 27.0 % 40.0-50.0 BLOOD GAS, [id number] 12:01:00* Test Item Value Reference Range Comments PH ARTERIAL (BEAKER) (test rjgq=081) 7.38 7.35-7.45 PCO2 ARTERIAL (BEAKER) (test hhkt=459) 39 mmHg 35-45 PO2 ARTERIAL (BEAKER) (test hpls=320) 316 mmHg 80-90 O2 SATURATION ARTERIAL (BEAKER) (test atwg=662) 99.7 % 96.0-97.0 HCO3 ARTERIAL (BEAKER) (test lpld=178) 24 mmol/L 21-29 BASE EXCESS ARTERIAL (BEAKER) (test ftzr=859) -2.3 mmol/L -2.0-3.0 PATIENT TEMPERATURE (BEAKER) (test kcef=8311) 32.0 C FIO2 (BEAKER) (test uvlx=7673) 65.0 % SODIUM NA-STAT [id number] 12:01:00* Test Item Value Reference Range Comments SODIUM (BEAKER) (test fecn=664) 134 meq/L 135-148 GLUCOSE-STAT [id number] 12:01:00* Test Item Value Reference Range Comments GLUCOSE RANDOM (BEAKER) (test wkgt=377) 207 mg/dL 70-110 HGB/HCT (H&H) - STAT [id number] 12:01:00* Test Item Value Reference Range Comments HEMOGLOBIN (BEAKER) (test gyhm=284) 10.1 g/dL 13.0-16.8 HEMATOCRIT (BEAKER) (test fslj=150) 30.0 % 40.0-50.0 POTASSIUM-STAT [id number] 12:00:00* Test Item Value Reference Range Comments POTASSIUM (BEAKER) (test alxy=560) 5.0 meq/L 3.6-5.5 POTASSIUM-STAT [id number] 11:24:00* Test Item Value Reference Range Comments POTASSIUM (BEAKER) (test bdsc=494) 4.3 meq/L 3.6-5.5 BLOOD GAS, [id number] 11:24:00* Test Item Value Reference Range Comments PH ARTERIAL (BEAKER) (test hplj=716) 7.34 7.35-7.45 PCO2 ARTERIAL (BEAKER) (test jqgq=041) 44 mmHg 35-45 PO2 ARTERIAL (BEAKER) (test nmks=975) 463 mmHg 80-90 O2 SATURATION ARTERIAL (BEAKER) (test yhig=320) 99.8 % 96.0-97.0 HCO3 ARTERIAL (BEAKER) (test bopr=863) 24 mmol/L 21-29 BASE EXCESS ARTERIAL (BEAKER) (test joyb=190) -2.7 mmol/L -2.0-3.0 PATIENT TEMPERATURE (BEAKER) (test olfn=3674) 33.0 C FIO2 (BEAKER) (test hndp=6909) 80.0 % SODIUM NA-STAT [id number] 11:24:00* Test Item Value Reference Range Comments SODIUM (BEAKER) (test rbbm=615) 133 meq/L 135-148 GLUCOSE-STAT [id number] 11:24:00* Test Item Value Reference Range Comments GLUCOSE RANDOM (BEAKER) (test tqxh=740) 183 mg/dL 70-110 HGB/HCT (H&H) - STAT [id number] 11:24:00* Test Item Value Reference Range Comments HEMOGLOBIN (BEAKER) (test wplp=876) 9.8 g/dL 13.0-16.8 HEMATOCRIT (BEAKER) (test equs=954) 29.0 % 40.0-50.0 CALCIUM, [id number] 10:10:00* Test Item Value Reference Range Comments CALCIUM IONIZED (BEAKER) (test jecp=305) 1.07 mmol/L 1.12-1.27 PH, BLOOD (BEAKER) (test hhlf=3904) 7.35 BLOOD GAS, [id number] 10:10:00* Test Item Value Reference Range Comments PH ARTERIAL (BEAKER) (test fqus=710) 7.37 7.35-7.45 PCO2 ARTERIAL (BEAKER) (test loer=215) 43 mmHg 35-45 PO2 ARTERIAL (BEAKER) (test thfh=660) 166 mmHg 80-90 O2 SATURATION ARTERIAL (BEAKER) (test dzar=114) 99.1 % 96.0-97.0 HCO3 ARTERIAL (BEAKER) (test cfre=856) 25 mmol/L 21-29 BASE EXCESS ARTERIAL (BEAKER) (test odln=478) -1.4 mmol/L -2.0-3.0 PATIENT TEMPERATURE (BEAKER) (test zxan=4539) 35.5 C FIO2 (BEAKER) (test vflf=8948) 76.0 % GLUCOSE-STAT [id number] 10:10:00* Test Item Value Reference Range Comments GLUCOSE RANDOM (BEAKER) (test coib=112) 163 mg/dL 70-110 HGB/HCT (H&H) - STAT [id number] 10:10:00* Test Item Value Reference Range Comments HEMOGLOBIN (BEAKER) (test xhfr=646) 12.8 g/dL 13.0-16.8 HEMATOCRIT (BEAKER) (test wijh=734) 38.0 % 40.0-50.0 SODIUM NA-STAT [id number] 10:08:00* Test Item Value Reference Range Comments SODIUM (BEAKER) (test blph=128) 138 meq/L 135-148 POTASSIUM-STAT [id number] 10:08:00* Test Item Value Reference Range Comments POTASSIUM (BEAKER) (test mamq=108) 3.8 meq/L 3.6-5.5 POCT-GLUCOSE [id number] 06:11:00* Test Item Value Reference Range Comments POC-GLUCOSE METER (BEAKER) (test wtrq=0204) 157 mg/dL 70-110 TESTED AT [address] [address] HEMOGLOBIN [id number] 14:54:00* Test Item Value Reference Range Comments HEMOGLOBIN A1C (BEAKER) (test wtqo=539) 8.7 % 4.3-6.1 COMPREHENSIVE METABOLIC [id number] 14:16:00* Test Item Value Reference Range Comments TOTAL PROTEIN (BEAKER) (test sopa=687) 8.1 gm/dL 6.0-8.3 ALBUMIN (BEAKER) (test ipbg=8537) 4.4 g/dL 3.5-5.0 ALKALINE PHOSPHATASE (BEAKER) (test hylp=438) 51 U/L 40-150 BILIRUBIN TOTAL (BEAKER) (test nbtq=683) 0.5 mg/dL 0.2-1.2 SODIUM (BEAKER) (test ypso=012) 143 meq/L 136-145 POTASSIUM (BEAKER) (test auzm=954) 4.1 meq/L 3.5-5.1 CHLORIDE (BEAKER) (test mrzh=240) 106 meq/L 98-107 CO2 (BEAKER) (test xuik=624) 29 meq/L 22-29 BLOOD UREA NITROGEN (BEAKER) (test fksx=659) 9 mg/dL 7-21 CREATININE (BEAKER) (test jxwj=060) 0.88 mg/dL 0.57-1.25 GLUCOSE RANDOM (BEAKER) (test qbvi=577) 114 mg/dL 70-105 CALCIUM (BEAKER) (test aabj=384) 9.7 mg/dL 8.4-10.2 AST (SGOT) (BEAKER) (test xdda=480) 22 U/L 5-34 ALT (SGPT) (BEAKER) (test iquf=728) 16 U/L 6-55 EGFR (BEAKER) (test vlnw=6488) 86 mL/min/1.73 sq m ESTIMATED GFR IS NOT ACCURATE CREATININE CLEARANCE IN PREDICTING GLOMERULAR FILTRATION RATE. ESTIMATED GFR IS NOT APPLICABLE FOR DIALYSIS PATIENTS. PROTHROMBIN TIME/[id number] 14:06:00* Test Item Value Reference Range Comments PROTIME (BEAKER) (test sglz=791) 12.6 seconds 11.7-14.7 INR (BEAKER) (test yugp=716) 0.9 <=5.9 RECOMMENDED COUMADIN/WARFARIN INR THERAPY RANGESSTANDARD DOSE: 2.0 - 3.0 Inclu nilesh: PROPHYLAXIS for venous thrombosis, systemic embolization; TREATMENT for bailey ous thrombosis and/or pulmonary embolus.HIGH RISK: Target INR is 2.5-3.5 for pat ients with mechanical heart valves.CBC W/PLT COUNT & AUTO [id number] 14:05:00* Test Item Value Reference Range Comments WHITE BLOOD CELL COUNT (BEAKER) (test zoik=871) 6.3 K/ L 3.5-10.5 RED BLOOD CELL COUNT (BEAKER) (test rchn=142) 5.31 M/ L 4.63-6.08 HEMOGLOBIN (BEAKER) (test udde=529) 13.7 GM/DL 13.7-17.5 HEMATOCRIT (BEAKER) (test jykb=666) 43.9 % 40.1-51.0 MEAN CORPUSCULAR VOLUME (BEAKER) (test faxj=894) 82.7 fL 79.0-92.2 MEAN CORPUSCULAR HEMOGLOBIN (BEAKER) (test eloh=857) 25.8 pg 25.7-32.2 MEAN CORPUSCULAR HEMOGLOBIN CONC (BEAKER) (test iaop=508) 31.2 GM/DL 32.3-36.5 RED CELL DISTRIBUTION WIDTH (BEAKER) (test qxda=028) 14.2 % 11.6-14.4 PLATELET COUNT (BEAKER) (test qxoc=890) 218 K/CU MM 150-450 MEAN PLATELET VOLUME (BEAKER) (test iswb=547) 11.1 fL 9.4-12.4 NUCLEATED RED BLOOD CELLS (BEAKER) (test yexn=554) 0 /100 WBC 0-0 NEUTROPHILS RELATIVE PERCENT (BEAKER) (test rfpb=642) 45 % LYMPHOCYTES RELATIVE PERCENT (BEAKER) (test nidn=487) 44 % MONOCYTES RELATIVE PERCENT (BEAKER) (test zuqx=469) 9 % EOSINOPHILS RELATIVE PERCENT (BEAKER) (test lzfm=183) 2 % BASOPHILS RELATIVE PERCENT (BEAKER) (test gppe=782) 1 % NEUTROPHILS ABSOLUTE COUNT (BEAKER) (test fzfn=522) 2.80 K/ L 1.78-5.38 LYMPHOCYTES ABSOLUTE COUNT (BEAKER) (test papu=925) 2.74 K/ L 1.32-3.57 MONOCYTES ABSOLUTE COUNT (BEAKER) (test hhjm=762) 0.58 K/ L 0.30-0.82 EOSINOPHILS ABSOLUTE COUNT (BEAKER) (test jazr=897) 0.10 K/ L 0.04-0.54 BASOPHILS ABSOLUTE COUNT (BEAKER) (test kmaa=798) 0.03 K/ L 0.01-0.08 IMMATURE GRANULOCYTES-RELATIVE PERCENT (BEAKER) (test eldy=3859) 0 % 0-1 RAD, CHEST, 2 [id number] 12:24:00Reason for Exam:->AAAFINAL REPORT Chest x-ray Clinical History: AAA Comparison: No comparison Views: 2 Chest x-ray:The cardiac and mediastinal silhouettes are within normal limits. There is no evidence of a pneumothorax. There is no evidence of a pleural effusion. There is no evidence of overt cardiac failure. The visible regional skeleton is intact. There is no evidence of a focal parenchymal opacity. Impression: No active cardiopulmonary disease Signed: Veronica Lorenzo Verified Date/Time: 07/10/2018 12:24:45 Reading Location: [facility] Radiology Reading Room Electronically signed by: VERONICA LORENZO M.D. on 12:24 PM BLOOD GAS, [id number] 11:07:00* Test Item Value Reference Range Comments PH ARTERIAL (BEAKER) (test xqer=889) 7.44 7.35-7.45 PCO2 ARTERIAL (BEAKER) (test tltk=544) 41 mmHg 35-45 PO2 ARTERIAL (BEAKER) (test aeoc=070) 68 mmHg 80-90 O2 SATURATION ARTERIAL (BEAKER) (test lclj=948) 94.2 % 96.0-97.0 HCO3 ARTERIAL (BEAKER) (test ctmb=039) 27 mmol/L 21-29 BASE EXCESS ARTERIAL (BEAKER) (test jfhe=771) 3.0 mmol/L -2.0-3.0 PATIENT TEMPERATURE (BEAKER) (test wynd=5540) 37.0 C FIO2 (BEAKER) (test xmis=3262) 21.0 %
--- OUTSIDE RECORDS SUMMARY | 2019-04-08 09:54 | XMS REPORT ---
Author Organization Unknown Address [address] [place] [id number] Phone [phone] Care Team Providers Care Branch Sales Manager Name Role Phone Phu Espinal Unavailable Unavailable Allergies Code Code System Name Reaction Severity Status Onset NKDA Medications Name Status Start Date Stop Date benazepril 10 mg-hydrochlorothiazide 12.5 mg tablet Active Not available Cipro HC 0.2 %-1 % ear drops,suspension INSTILL 3 DROPS INTO AFFECTED EAR(S) BY OTIC ROUTE EVERY 12 HOURS Completed 01/27/2017 famotidine 40 mg tablet Take 1 tablet every day by oral route at bedtime for 90 days. Completed 04/28/2017 meclizine 25 mg tablet Take 1 tablet 3 times a day by oral route as needed for 10 days. Completed 04/28/2017 meloxicam 15 mg tablet TAKE 1 TABLET EVERY DAY Active Not available metoprolol succinate ER 25 mg tablet,extended release 24 hr Take 1 tablet every day by oral route. Active Not available Naprosyn 500 mg tablet Take 1 tablet twice a day by oral route for 30 days. Completed 01/27/2017 Problems Name Status Onset Date Source Gastroesophageal Reflux Disease without Esophagitis Unknown 07/17/2015 History Chronic Vertigo Unknown 01/27/2017 Lower Urinary Tract Symptoms Due to Benign Prostatic Hypertrophy Active 01/27/2017 Perforation of Tympanic Membrane Active 04/28/2017 Hypertensive Heart Disease Active 04/28/2017 Aortic Valve Stenosis Active 04/28/2017 Chronic Diastolic Heart Failure Active 05/13/2017 Procedures Date Name Performed by 07/23/[address] [place] [address] (Work [address]) 01/29/2017 US, Echocardiogram [address] [phone] (Work Place) 04/30/2017 US, Echocardiogram, Transthoracic, Complete, W/ Color Flow [address] [place] [address] (Work Place) 04/30/2017 US, Echocardiogram, Transthoracic, Complete, W/ Color Flow [facility] [id number] [facility] [address] [place] [address] (Work Place) Lab Results Date Name Specimen Result Interpretation Description Value Range Status Address 07/23/2016 Lipid Panel, Serum Normal Cholesterol, Total 157 mg/dL 125- 200 mg/dL Final [facility]: [address], [place] Low HDL Cholesterol 34 mg/dL > or=40 mg/dL Final [facility]: [address], [place] Normal Triglycerides 139 mg/dL <150 mg/dL Final [facility]: [address], [place] Normal LDL-cholesterol 95 mg/dL (calc) <130 mg/dL (calc) Final [facility]: [address], [place] Normal Chol/hdlc Ratio 4.6 (calc) < or=5.0 (calc) Final [facility]: [address], [place] Normal Non HDL Cholesterol 123 mg/dL (calc) Final [facility]: [address], [place] 07/23/2016 CMP, Serum or Plasma High Glucose 113 mg/dL 65-99 mg/dL Final [facility]: [address], [place] Normal Urea Nitrogen (BUN) 12 mg/dL 7-25 mg/dL Final [facility]: [address], [place] Normal Creatinine 0.77 mg/dL 0.70-1.25 mg/dL Final [facility]: [address], [place] Normal eGFR Non-afr. Guamanian 95 mL/min/1.73m2 > or=60 mL/min/1.73m2 Final [facility]: [address], [place] Normal eGFR 110 mL/min/1.73m2 > or=60 mL/min/1.73m2 Final [facility]: [address], [place] BUN/creatinine Ratio not applicable (calc) 6-22 (calc) Final [facility]: [address], [place] Normal Sodium 141 mmol/L 135-146 mmol/L Final [facility]: [address] [place], [place] [address], [place] Normal Potassium 4.8 mmol/L 3.5-5.3 mmol/L Final [facility]: [address] [facility], [place] Normal Chloride 107 mmol/L 98-110 mmol/L Final [facility]: [address] [place] [address], [place] Normal Carbon Dioxide 27 mmol/L 20-31 mmol/L Final [facility]: [address], [place] Normal Calcium 9.3 mg/dL 8.6-10.3 mg/dL Final [facility]: [address] [place] [address], [place] Normal Protein, Total 7.3 g/dL 6.1-8.1 g/dL Final [facility]: [address] [place] [address], [place] Normal Albumin 4.1 g/dL 3.6-5.1 g/dL Final [facility]: [address] [place] [address], [place] Normal Globulin 3.2 g/dL (calc) 1.9-3.7 g/dL (calc) Final [facility]: [address] [place] [address], [place] Normal Albumin/globulin Ratio 1.3 (calc) 1.0-2.5 (calc) [facility]: [address] [place] [address], [place] Normal Bilirubin, Total 0.4 mg/dL 0.2-1.2 mg/dL Final [facility]: [address] [place] [address], [place] Normal Alkaline Phosphatase 52 U/L 40-115 U/L Final [facility]: [address] [place] [address], [place] Normal Ast 20 U/L 10-35 U/L Final [facility]: [address] [place] [address], [place] Normal Alt 13 U/L 9-46 U/L Final [facility] [address] [facility] [place] 07/23/2016 CBC W/ Auto Diff Normal White Blood Cell Count 7.1 thousand/uL 3.8-10.8 thousand/uL Final [facility]: [address] [place] [address], [place] Normal Red Blood Cell Count 5.15 million/uL 4.20-5.80 million/uL Final [facility]: [address], [place] Normal Hemoglobin 13.4 g/dL 13.2-17.1 g/dL Final [facility]: [address], [place] Normal Hematocrit 41.9 % 38.5-50.0 % Final [facility]: [address], [place] Normal Mcv 81.5 fL 80.0-100.0 fL Final [facility]: [address], [place] Low Mch 26.0 pg 27.0-33.0 pg Final [facility]: [address], [place] Low Mchc 31.9 g/dL 32.0-36.0 g/dL Final [facility]: [address], [place] Normal Rdw 14.9 % 11.0-15.0 % Final [facility]: [address], [place] Normal Platelet Count 190 thousand/uL 140-400 thousand/uL Final [facility]: [address] [place], [place] [address], [place] Normal Mpv 11.5 fL 7.5-12.5 fL Final [facility]: [address], [place] Normal Absolute Neutrophils 2876 cells/uL 9906-1017 cells/uL Final [facility]: [address], [place] Normal Absolute Lymphocytes 3266 cells/uL 850-3900 cells/uL Final [facility]: [facility] [address], [place] Normal Absolute Monocytes 717 cells/uL 200-950 cells/uL Final [facility]: [address], [place] Normal Absolute Eosinophils 206 cells/uL 15-500 cells/uL Final [facility]: [address], [place] Normal Absolute Basophils 36 cells/uL 0-200 cells/uL Final [facility] Lab: [address], [place] Normal Neutrophils 40.5 % Final [facility]: [address], [place] Normal Lymphocytes 46.0 % Final [facility]: [address], [place] Normal Monocytes 10.1 % Final [facility]: [address], [place] Normal Eosinophils 2.9 % Final [facility]: [address], [place] Normal Basophils 0.5 % Final [facility]: [address] 07/23/2016 PSA, Serum or Plasma Normal PSA, Total 0.5 NG/mL < or=4.0 NG/mL Final [facility]: [address] [facility], [place] Electrocardiogram Rate & Rhythm [facility]: [address] [address], [place] Qrs [facility]: [address] [address], [place] Interval [facility]: [address] [address], [place] QRS Duration [facility]: [address] [address], [place] QT Interval [facility]: [address] [address], [place] Past Encounters 10/06/2017 Hypertensive Heart Disease; Aortic Valve Stenosis; Chronic Diastolic Heart Failure; Pain in Left Knee; Morbid Obesity Phu Espinal MD: [id number] [phone], [place]. 05/13/2017 Aortic Valve Stenosis; Chronic Diastolic Heart Failure Phu Espinal MD: [id number] [address], [place]. 04/30/2017 Hypertensive Heart Disease; Aortic Valve Stenosis Phu Espinal MD: [id number] [address], [place]. 04/28/2017 Morbid Obesity; Hypertensive Heart Disease; Aortic Valve Stenosis; Perforation of Tympanic Membrane Phu Espinal MD: [address] [place] [phone], [place]. 01/27/2017 Body Mass Index 30+ - Obesity; Pain in Left Knee; Motion Sickness; Gastroesophageal Reflux Disease without Esophagitis; On Examination - Aortic Systolic Murmur Phu Espinal MD: [address] [place] [phone], [place]. 07/23/2016 Adult Health Examination; Elevated Blood-pressure Reading without Diagnosis of Hypertension; Pain in Left Knee; Chronic Otitis Externa; Perforation of Tympanic Membrane; Advance Directive Discussed with Patient; Body Mass Index 30+ - Obesity; Glaucoma Screening; Screening for Malignant Neoplasm of Prostate; Screening for Malignant Neoplasm of Colon Phu Espinal MD: [id number] [facility], [address], [place] [address], Ph. 06/04/2016 Sprain of Medial Collateral Ligament of Knee; Plantar Fasciitis; Immunization Phu Espinal MD: [id number] [facility], [address], [place] [address], Ph. Social History Smoking Status Never Smoker Vaccine List Vaccine Type influenza, high dose seasonal 06/04/20160.5 mL influenza, unspecified formulation 01/21/2017 pneumococcal polysaccharide PPV23 06/04/20160.5 mL Plan of Care Patient Instructions It was good to see you in the office today for your Medicare Annual Wellness Visit. You have been provided some information on healthy nutrition, including a diet rich in fruits and vegetables, minimizing simple carbohydrates, salt, and saturated fats. I want to encourage regular cardiovascular exercise such as walking at least 30 minutes daily, 5 times per week. Please remember to schedule any preventive health measures that we talked about today. You have also been provided education on fall prevention and community- based lifestyle interventions to help reduce health risks and promote healthy living in your [employer] folder. Reminders Provider Appointments None recorded. Lab None recorded. Referral None recorded. Procedures None recorded. Surgeries None recorded. Imaging None recorded. Vitals 10/06/2017 11:00AM Est Patient Height Weight BMI Blood Pressure 5 ft 4 in 219.8 lbs 37.7 kg/m2 (1) 144/92 mm[Hg] (2) 132/87 mm[Hg] 05/13/2017 09:30AM Work In Same Day Height Weight BMI Blood Pressure 5 ft 4 in 222 lbs 38.1 kg/m2 152/89 mm[Hg] 04/28/2017 02:45PM Est Patient Height Weight BMI Blood Pressure 5 ft 4 in 222 lbs 38.1 kg/m2 160/94 mm[Hg] 01/27/2017 01:45PM Est Patient Height Weight BMI Blood Pressure 5 ft 4 in 218 lbs 37.4 kg/m2 149/88 mm[Hg] 07/23/2016 02:00PM DYE FEEDER/EST CPX Height Weight BMI Blood Pressure 5 ft 9 in 221.8 lbs 32.8 kg/m2 184/106 mm[Hg] 06/04/2016 03:30PM Est Patient Height Weight BMI Blood Pressure 5 ft 9 in 216.6 lbs 32 kg/m2 156/88 mm[Hg] 07/17/2015 Height Weight BMI Blood Pressure 5 ft 9 in 214.4 lbs 31.66 kg/m2 124/71 mm[Hg] 07/29/2013 Height Weight 5 ft 9 in 215 lbs 06/28/2013 Height Weight 5 ft 9 in 211.2 lbs
[2019-04-08 11:20] VITALS: BP 111/68
== END | disposition home or self-care (01) ==
LOC: OR 09:45
PROVIDERS: ATTEND Internal Medicine Gastroenterology
DX: Z09 Encounter for follow-up examination after completed treatment for conditions other than malignant neoplasm (principal); Z86.010 Personal history of colon polyps; K57.30 Diverticulosis of large intestine without perforation or abscess without bleeding; K64.8 Other hemorrhoids; I10 Essential (primary) hypertension; I25.10 Atherosclerotic heart disease of native coronary artery without angina pectoris; I48.91 Unspecified atrial fibrillation; E11.9 Type 2 diabetes mellitus without complications; Z01.810 Encounter for preprocedural cardiovascular examination; Z01.812 Encounter for preprocedural laboratory examination; Z79.02 Long term (current) use of antithrombotics/antiplatelets; Z79.84 Long term (current) use of oral hypoglycemic drugs
CPT/HCPCS: 36415 ×2; 45378; 82948; 85025; 93005; J2001; J2250; J2704

== ENCOUNTER → 2022-04-11 | Day surgery (SDC) | payer MEDICARE ==
[2022-04-09 13:04] LABS: BASOPHILS # (AUTO) 0.1 (0.0-0.1); BASOPHILS % 0.8 % (0.0-1.0); EOSINOPHILS # (AUTO) 0.2 (0.0-0.4); EOSINOPHILS % 3.1 % (0.0-6.0); HEMATOCRIT 49.2 % (38.2-49.6); HEMOGLOBIN 15.4 g/dL (14.0-18.0); LYMPHOCYTES # (AUTO) 1.9 (1.0-3.2); LYMPHOCYTES % 30.2 % (18.0-39.1); MEAN CORPUSCULAR HEMOGLOBIN 26.3 pg (28-32); MEAN CORPUSCULAR HGB CONC 31.3 g/dL (31-35); MEAN CORPUSCULAR VOLUME 84.1 fL (81-99); MONOCYTES # (AUTO) 0.5 (0.2-0.8); MONOCYTES % 8.1 % (4.4-11.3); NEUTROPHILS # (AUTO) 3.5 (2.1-6.9); NEUTROPHILS % 57.6 % (38.7-80.0); PLATELET COUNT 261 x10e3/uL (140-360); RED BLOOD COUNT 5.85 x10e6/uL (4.3-5.7); RED CELL DISTRIBUTION WIDTH 14.9 % (11.7-14.4)
[~2022-04-11] MED LIST changes: +AMIODARONE HCL200 MG PO; +ASPIRIN81 MG PO; +BENAZEPRIL-HCT1 EAC1 PO; +CLOPIDOGREL75 MG PO; +FUROSEMIDE40 MG PO; +GLIMEPIRIDE2 MG PO; +JARDIANCE25 MG PO; -LIDOCAINE HCL 2% LOCAL INJ 5 ML SDV VIAL INJ ONE; -MIDAZOLAM HCL 2 MG/2 ML VIAL ONE; -PROPOFOL IV EMULSION 10 MG/ML 50 ML VIAL ONE; +ZETIA10 MG PO
[2022-04-11 08:03] VITALS: BP 101/78
== END | disposition home or self-care (01) ==
LOC: OR 06:09
PROVIDERS: ATTEND Internal Medicine Gastroenterology
DX: Z09 Encounter for follow-up examination after completed treatment for conditions other than malignant neoplasm (principal); D12.3 Benign neoplasm of transverse colon; K57.30 Diverticulosis of large intestine without perforation or abscess without bleeding; K64.8 Other hemorrhoids; E11.9 Type 2 diabetes mellitus without complications; I10 Essential (primary) hypertension; Z88.2 Allergy status to sulfonamides; Z01.810 Encounter for preprocedural cardiovascular examination; Z01.812 Encounter for preprocedural laboratory examination; Z79.02 Long term (current) use of antithrombotics/antiplatelets; Z79.82 Long term (current) use of aspirin; Z79.84 Long term (current) use of oral hypoglycemic drugs; Z79.899 Other long term (current) drug therapy
CPT/HCPCS: 36415; 45384; 82948; 85025; 88305; 93005